=== PATIENT | female | born 1965 | race Caucasian/White ===

== ENCOUNTER 2022-03-29 21:23 | Outpatient (REF) | payer BC, SELFPAY ==
[2022-03-29 22:17] LABS: Calcium* 8.9 mg/dL (8.4-10.6); Creatinine* 0.6 mg/dL (0.5-1.5); Estimated Glomerular Filt Rate 107 ml/min
== END 2022-03-29 21:24 | disposition home or self-care (01) ==
LOC: NPINS 21:23
PROVIDERS: PCP Emergency Medicine; Visit Provider Clinical Nurse Specialist
DX: M85.30 Osteitis condensans, unspecified site (principal)
CPT/HCPCS: 82310; 82565

== ENCOUNTER 2022-03-31 09:01 | Outpatient (RCR) | payer BC, SELFPAY ==
--- NOTE | 2022-03-29 13:27 | URNOTE ---
Received request for prior auth for Zoledronic acid ([id number]). Per [facility], prior auth is not required. Services are based on medical necessity.
[2022-03-31 09:18] VITALS: BP 97/66; PULSE 77; RESP 16; TEMP 36.8; O2SAT 98
== END 2022-04-09 23:59 | disposition home or self-care (01) ==
LOC: CCIC 09:01
PROVIDERS: PCP Emergency Medicine; Visit Provider Emergency Medicine
DX: M85.80 Other specified disorders of bone density and structure, unspecified site (principal)
CPT/HCPCS: 96365; J3489

== ENCOUNTER 2022-08-14 09:00 | Outpatient (CLI) | payer BC, SELFPAY ==
--- NOTE | 2022-08-14 09:15 | CRLHL7_ITS ---
For Patients: As a result of the Century Cures Act, medical imaging exams and procedure reports are released immediately into your electronic medical record. You may view this report before your referring provider. If you have questions, please contact your health care provider. BILATERAL SCREENING MAMMOGRAM WITH COMPUTER-AIDED DETECTION AND TOMOSYNTHESIS TECHNIQUE: CC and MLO views were obtained. These mammographic images have been obtained using full-field digital technique. These mammographic images were interpreted with the benefit of computer-aided detection. Breast Tomosynthesis was used in this interpretation. COMPARISON FILM: 04/20/21, 04/23/20, 04/09/19. FINDINGS: There are scattered areas of fibroglandular density IMPRESSION: There is no radiographic evidence for malignancy. ASSESSMENT: BI-RADS Category 1: Negative RECOMMENDATION: Routine screening mammogram in 1 year. A lay language report of this examination will be provided to the patient. Mulugeta Castro M.D. Diagnostic Radiologist [email or web address] SALAZAR/Dictated by: Mulugeta Castro MD @ 08/14/2022 12:52:00 PM (Electronically Signed)
== END 2022-08-14 09:01 | disposition home or self-care (01) ==
LOC: MAMMO 09:01
PROVIDERS: PCP Emergency Medicine; Visit Provider Emergency Medicine
DX: Z12.31 Encounter for screening mammogram for malignant neoplasm of breast (principal)
CPT/HCPCS: 77063; 77067

== ENCOUNTER 2023-01-11 07:31 | Outpatient (CLI) | payer BC, SELFPAY | END 2023-01-11 07:32 | disposition home or self-care (01) | LOC: NFLDREF 01-12 10:54 | PROVIDERS: PCP Emergency Medicine; Referring Provider Emergency Medicine; Visit Provider Emergency Medicine | DX: D50.9 Iron deficiency anemia, unspecified (principal); E78.5 Hyperlipidemia, unspecified; F90.9 Attention-deficit hyperactivity disorder, unspecified type; Z79.899 Other long term (current) drug therapy | CPT/HCPCS: 80048; 80061; 82607; 82728 ==

== ENCOUNTER 2023-05-08 16:05 | Outpatient (CLI) | payer BC, SELFPAY | END 2023-05-08 16:06 | disposition home or self-care (01) | LOC: NFLDREF 05-10 16:15 | PROVIDERS: PCP Emergency Medicine; Referring Provider Emergency Medicine; Visit Provider Emergency Medicine | DX: R79.89 Other specified abnormal findings of blood chemistry (principal) | CPT/HCPCS: 82306 ==

== ENCOUNTER 2023-08-17 08:00 | Outpatient (REF) | payer BC, SELFPAY | END 2023-08-17 08:01 | disposition home or self-care (01) | LOC: NFLDREF 08:00 | PROVIDERS: PCP Emergency Medicine; Referring Provider Emergency Medicine; Visit Provider Emergency Medicine | DX: D50.8 Other iron deficiency anemias (principal); E78.5 Hyperlipidemia, unspecified; R79.89 Other specified abnormal findings of blood chemistry | CPT/HCPCS: 80053; 80061; 82306; 82728 ==

== ENCOUNTER 2023-10-02 12:39 | Outpatient (CLI) | payer BC, SELFPAY ==
--- NOTE | 2023-10-02 13:00 | CRLHL7_ITS ---
For Patients: As a result of the Century Cures Act, medical imaging exams and procedure reports are released immediately into your electronic medical record. You may view this report before your referring provider. If you have questions, please contact your health care provider. BILATERAL SCREENING MAMMOGRAM WITH COMPUTER-AIDED DETECTION AND TOMOSYNTHESIS TECHNIQUE: CC and MLO views were obtained. These mammographic images have been obtained using full-field digital technique. These mammographic images were interpreted with the benefit of computer-aided detection. Breast Tomosynthesis was used in this interpretation. COMPARISON FILM: 08/14/22, 04/20/21, 04/23/20. FINDINGS: There are scattered areas of fibroglandular density. IMPRESSION: There is no radiographic evidence for malignancy. ASSESSMENT: BI-RADS Category 1: Negative RECOMMENDATION: Routine screening mammogram in 1 year. A lay language report of this examination will be provided to the patient. Mulugeta Castro M.D. Diagnostic Radiologist [email or web address] SP/Dictated by: Mulugeta Castro MD @ 10/03/2023 1:00:00 PM (Electronically Signed)
== END 2023-10-02 12:40 | disposition home or self-care (01) ==
LOC: MAMMO 12:39
PROVIDERS: PCP Emergency Medicine; Visit Provider Emergency Medicine
DX: Z12.31 Encounter for screening mammogram for malignant neoplasm of breast (principal)
CPT/HCPCS: 77063; 77067

== ENCOUNTER 2023-12-07 13:19 | Inpatient (IN) | payer BC, SELFPAY ==
[2023-12-07] VITALS (7 sets, daily range): BP systolic 140–169; BP diastolic 83–92; PULSE 69–83; RESP 20–26; TEMP 36.1–37.1; O2SAT 95–100; BMI 31.5; BMI 32.4
--- NOTE | 2023-12-07 13:55 | ED.GENADULT ---
HPI - General Adult General Chief complaint: Abdominal Pain <Radha Reddy MD - Last Filed: 12/07/23 20:04> Stated complaint: vomiting, stomach pain <Radha Reddy MD - Last Filed: 12/07/23 20:04> Time Seen by Provider: 12/07/23 13:29 <Radha Reddy MD - Last Filed: 12/07/23 20:04> Source: patient <Radha Reddy MD - Last Filed: 12/07/23 20:04> Mode of arrival: ambulatory <Radha Reddy MD - Last Filed: 12/07/23 20:04> Limitations: no limitations <Radha Reddy MD - Last Filed: 12/07/23 20:04> History of Present Illness HPI narrative: 58-year-old female presenting today with abdominal pain that started about 5 hours ago. Pain is located all over the abdomen but concentrates just above the umbilicus slightly to the left. She states that she has vomited multiple times secondary to the pain. She denies fevers or chills. She denies nothing making the pain better or worse. She states that she had 2 bowel movements this morning which were normal. She denies any blood in her stool. She denies any difficulty with urination, no dysuria, increased frequency or urgency. 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 Past surgical history includes bariatric surgery. <Radha Reddy MD - Last Filed: 12/07/23 20:04> Related Data Home medications: Home Medications Medication Instructions Recorded Confirmed cetirizine 10 mg tablet 10 mg PO DAILY PRN 03/30/22 07/30/23 iron slow release PO 12/05/22 07/30/23 Previous Rx's Medication Instructions Recorded cyclobenzaprine 10 mg tablet 5 - 10 mg (0.5 - 1 x 10 mg) PO HS 01/17/23 PRN muscle spasm #90 tabs ergocalciferol (vitamin D2) 1,250 1,250 mcg PO DIRECTED #10 caps 05/10/23 mcg (50,000 unit) capsule dextroamphetamine-amphetamine ER 20 mg PO QAM #30 caps 07/25/23 20 mg 24hr capsule,extend release (Adderall XR) epinephrine 0.3 mg/0.3 mL 0.3 ml IM PRN PRN bronchodilation 08/21/23 injection, auto-injector #2 ea triamcinolone acetonide 0.1 % 1 applic topical BID #30 grams 08/21/23 topical cream trazodone 50 mg tablet 50 mg PO QPM PRN for insomnia #90 10/03/23 tabs <Radha Reddy MD - Last Filed: 12/07/23 20:04> Allergies/adverse reactions: Allergies Allergy/AdvReac Type Severity Reaction Status Date / Time Shell fish Allergy Intermediate Anaphylaxis Uncoded 08/21/23 12:40 <Radha Reddy MD - Last Filed: 12/07/23 20:04> Review of Systems Status of ROS: Reports: 10 or more systems reviewed and unremarkable except as noted in History and below <Radha Reddy MD - Last Filed: 12/07/23 20:04> [facility] Medical History: Medical History Screening for cervical cancer ?Z12.4 - Encounter for screening for malignant neoplasm of cervix (ICD-10) Bruising ?T14.8XXA - Other injury of unspecified body region, initial encounter (ICD-10) Thoracic back pain ?M54.6 - Pain in thoracic spine (ICD-10) COVID ?U07.1 - COVID-19 (ICD-10) SCC (squamous cell carcinoma) ?C44.92 - Squamous cell carcinoma of skin, unspecified (ICD-10) Shellfish allergy ?Z91.013 - Allergy to seafood (ICD-10) Medication management ?Z79.899 - Other care home (current) drug therapy (ICD-10) Psoriasis ?L40.9 - Psoriasis, unspecified (ICD-10) Adhesive capsulitis ?M75.00 - Adhesive capsulitis of unspecified shoulder (ICD-10) Tendinopathy of rotator cuff ?M67.919 - Unspecified disorder of synovium and tendon, unspecified shoulder (ICD-10) ADHD ?F90.9 - Attention-deficit hyperactivity disorder, unspecified type (ICD-10) Insomnia ?G47.00 - Insomnia, unspecified (ICD-10) Osteoporosis ?M81.0 - Age-related osteoporosis without current pathological fracture (ICD-10) Osteopenia ?M85.80 - Other specified disorders of bone density and structure, unspecified site (ICD-10) <Radha Reddy MD - Last Filed: 12/07/23 20:04> Surgical History: Surgical History H/O bariatric surgery ?Z98.84 - Bariatric surgery status (ICD-10) History of tubal ligation (08/22/11) ?Z98.51 - Tubal ligation status (ICD-10) History of tonsillectomy (07/10/11) ?Z90.89 - Acquired absence of other organs (ICD-10) History of sinus surgery (07/10/11) ?Z98.890 - Other specified postprocedural states (ICD-10) History of gastric bypass (07/10/11) ?Z98.84 - Bariatric surgery status (ICD-10) <Radha Reddy MD - Last Filed: 12/07/23 20:04> Family History: Family History Son ADHD Father Coronary artery disease High blood pressure High cholesterol Other Heart disease Hyperlipidemia Osteoporosis <Radha Reddy MD - Last Filed: 12/07/23 20:04> Social History: Social History Narrative: Nonsmoker Smoking Status: Never smoker Little interest or pleasure in doing things: not at all Feeling down, depressed, or hopeless: not at all <Radha Reddy MD - Last Filed: 12/07/23 20:04> Exam Narrative: Exam Narrative: Well-nourished well-developed patient in moderate distress. Alert and oriented x3. Answers questions appropriately. Mood and affect are appropriate. Thoughts are goal oriented and rational. No tangential or magical thinking noted. Patient is panting in pain. HEENT: Normocephalic atraumatic. Pupils are equally round reactive to light. Extraocular muscles are intact. Conjunctivae are moist without any icterus noted. Slightly dry mucous membranes. Posterior pharynx is normal. Neck is soft without any lymphadenopathy or thyromegaly. No masses are appreciated. Cardiovascular: Heart is regular rate and rhythm S1 and S2 are present without any murmurs. Lungs: Clear to auscultation bilaterally no wheezes rhonchi or rales are appreciated. Patient takes deep breaths without any discomfort. Abdomen: Soft and nondistended, normal bowel sounds. She has diffuse tenderness, however the most tender area is just superior to the umbilicus slightly off to the left. Extremities: Bilateral lower extremities are without edema. Skin: Well perfused without any obvious rashes. <Radha Reddy MD - Last Filed: 12/07/23 20:04> Const: Vital Signs, click to edit/add: Vital Signs - 24 hr 12/07/23 13:35 12/07/23 17:09 12/07/23 17:10 Temperature 97.7 F Pulse Rate 73 71 Pulse Rate [Pulse Oximeter] 75 Respiratory Rate 26 H Blood Pressure 145/83 H Blood Pressure [Ri ght Upper Arm] 169/92 H Pulse Oximetry 100 100 100 Oxygen Delivery Me thod Room Air 12/07/23 17:11 12/07/23 17:18 Temperature 97.0 F L Pulse Rate 69 Pulse Rate [Pulse Oximeter] Respiratory Rate Blood Pressure Blood Pressure [Ri ght Upper Arm] Pulse Oximetry 100 Oxygen Delivery Me thod <Radha Reddy MD - Last Filed: 12/07/23 20:04> Vital Signs, click to edit/add: Vital Signs - 24 hr 12/07/23 13:35 12/07/23 17:09 12/07/23 17:10 Temperature 97.7 F Pulse Rate 73 71 Pulse Rate [Pulse Oximeter] 75 Respiratory Rate 26 H Blood Pressure 145/83 H Blood Pressure [Ri ght Upper Arm] 169/92 H Pulse Oximetry 100 100 100 Oxygen Delivery Me thod Room Air 12/07/23 17:11 12/07/23 17:18 Temperature 97.0 F L Pulse Rate 69 Pulse Rate [Pulse Oximeter] Respiratory Rate Blood Pressure Blood Pressure [Ri ght Upper Arm] Pulse Oximetry 100 Oxygen Delivery Me thod <Kosta Thornton MD - Last Filed: 12/07/23 22:31> Course Course ED Course: IV is ordered along with IV fluids, morphine and Zofran. Unfortunately, staff is unable to get an IV in. Anesthesia is called down and they are also unable to get an IV in. Given the amount of pain that she is in patient receives oral hydromorphone, oral Zofran and we sent her down for a CT scan without IV contrast. Differential diagnosis at this time includes mesenteric ischemia, bowel perforation, volvulus, bowel obstruction, pancreatitis, gastritis. CT shows duodenitis, however images again, were done without contrast. Her white cell count is elevated at 12.5, neutrophils at 86%. Chemistries showed a slightly low carbon dioxide at 18, glucose 133, lactate elevated at 3.1. CRP less than 0.5. LFTs unremarkable. Lipase normal. After patient had been in the ED for approximately 3-1/2 hour, we had an outside PICC line team, and placed an IV. At this time fluids were started, and given the amount of pain that she can a CT with contrast was ordered. Unfortunately after she got IV Dilaudid, Protonix and 700 mL of fluid while waiting for the CT, the IV blew. At this time I contacted Dr. La, who was in agreement that the patient does need a CT with contrast. She will be coming into place a central line. <Radha Reddy MD - Last Filed: 12/07/23 20:04> Vital Signs Vital signs: Initial Vital Signs Temperature 97.7 F 12/07/23 13:35 Temperature Source Temporal Artery Scan 12/07/23 13:35 Pulse Rate 75 12/07/23 13:35 Pulse Rhythm Regular 12/07/23 13:35 Respiratory Rate 26 H 12/07/23 13:35 Blood Pressure 169/92 H 12/07/23 13:35 Blood Pressure Mean 117 H 12/07/23 13:35 Blood Pressure Position Sitting 12/07/23 13:35 Pulse Oximetry 100 12/07/23 13:35 Oxygen Delivery Method Room Air 12/07/23 13:35 Vital Signs Temperature 97.7 F 12/07/23 13:35 Pulse Rate 75 12/07/23 13:35 Respiratory Rate 26 H 12/07/23 13:35 Blood Pressure 169/92 H 12/07/23 13:35 Pulse Oximetry 100 12/07/23 13:35 Oxygen Delivery Method Room Air 12/07/23 13:35 Temperature 97.0 F L 12/07/23 17:18 Pulse Rate 69 12/07/23 17:11 Respiratory Rate 26 H 12/07/23 13:35 Blood Pressure 145/83 H 12/07/23 17:10 Pulse Oximetry 100 12/07/23 17:11 Oxygen Delivery Method Room Air 12/07/23 13:35 <Radha Reddy MD - Last Filed: 12/07/23 20:04> Initial Vital Signs Temperature 97.7 F 12/07/23 13:35 Temperature Source Temporal Artery Scan 12/07/23 13:35 Pulse Rate 75 12/07/23 13:35 Pulse Rhythm Regular 12/07/23 13:35 Respiratory Rate 26 H 12/07/23 13:35 Blood Pressure 169/92 H 12/07/23 13:35 Blood Pressure Mean 117 H 12/07/23 13:35 Blood Pressure Position Sitting 12/07/23 13:35 Pulse Oximetry 100 12/07/23 13:35 Oxygen Delivery Method Room Air 12/07/23 13:35 Vital Signs Temperature 97.7 F 12/07/23 13:35 Pulse Rate 75 12/07/23 13:35 Respiratory Rate 26 H 12/07/23 13:35 Blood Pressure 169/92 H 12/07/23 13:35 Pulse Oximetry 100 12/07/23 13:35 Oxygen Delivery Method Room Air 12/07/23 13:35 Temperature 97.0 F L 12/07/23 17:18 Pulse Rate 69 12/07/23 17:11 Respiratory Rate H 12/07/23 13:35 Blood Pressure 145/83 H 12/07/23 17:10 Pulse Oximetry 100 12/07/23 17:11 Oxygen Delivery Method Room Air 12/07/23 13:35 <Kosta Thornton MD - Last Filed: 12/07/23 22:31> Medications Administered Medications: Generic Name Dose Route Start Last Admin Trade Name Freq PRN Reason Stop Dose Admin Sodium Chloride 1,000 mls @ 1,000 mls/hr 12/07/23 21:12 12/07/23 21:30 0.9 % Sodium Chloride 1000 Ml IV 12/07/23 22:11 1,000 mls/hr .Q1H CASTRO Administration Discontinued Medications Generic Name Dose Route Start Last Admin Trade Name Freq PRN Reason Stop Dose Admin Hydromorphone HCl 2 mg 12/07/23 15:15 12/07/23 16:33 Hydromorphone 2 Mg Tablet PO 12/07/23 15:16 Not Given ONCE ONE Hydromorphone HCl 0.5 mg 12/07/23 16:59 12/07/23 17:09 Hydromorphone 0.5 Mg/0.5 Ml Inj IVP 12/07/23 17:00 0.5 mg ONCE ONE Administration Sodium Chloride 1,000 mls @ 1,000 mls/hr 12/07/23 13:45 12/07/23 20:39 0.9 % Sodium Chloride 1000 Ml IV 12/07/23 14:44 Infused .Q1H CASTRO Infusion Morphine Sulfate 2 mg 12/07/23 13:41 12/07/23 14:51 Morphine 2 Mg/Ml Inj IVP 12/07/23 13:42 2 mg ONCE ONE Administration Ondansetron HCl 4 mg 12/07/23 13:41 12/07/23 20:38 Ondansetron 2 Mg/Ml Inj IVP 12/07/23 13:42 Not Given ONCE ONE Ondansetron HCl 4 mg 12/07/23 15:18 12/07/23 15:27 Ondansetron Odt 4 Mg Tab PO 12/07/23 15:19 4 mg ONCE ONE Administration Pantoprazole Sodium 80 mg 12/07/23 16:08 12/07/23 17:18 Pantoprazole Sodium 40 Mg Inj IVP 12/07/23 16:09 80 mg ONCE ONE Administration <Radha Reddy MD - Last Filed: 12/07/23 20:04> Generic Name Dose Route Start Last Admin Trade Name Freq PRN Reason Stop Dose Admin Sodium Chloride 1,000 mls @ 1,000 mls/hr 12/07/23 21:12 12/07/23 21:30 0.9 % Sodium Chloride 1000 Ml IV 12/07/23 22:11 1,000 mls/hr .Q1H CASTRO Administration Discontinued Medications Generic Name Dose Route Start Last Admin Trade Name Freq PRN Reason Stop Dose Admin Hydromorphone HCl 2 mg 12/07/23 15:15 12/07/23 16:33 Hydromorphone 2 Mg Tablet PO 12/07/23 15:16 Not Given ONCE ONE Hydromorphone HCl 0.5 mg 12/07/23 16:59 12/07/23 17:09 Hydromorphone 0.5 Mg/0.5 Ml Inj IVP 12/07/23 17:00 0.5 mg ONCE ONE Administration Sodium Chloride 1,000 mls @ 1,000 mls/hr 12/07/23 13:45 12/07/23 20:39 0.9 % Sodium Chloride 1000 Ml IV 12/07/23 14:44 Infused .Q1H CASTRO Infusion Morphine Sulfate 2 mg 12/07/23 13:41 12/07/23 14:51 Morphine 2 Mg/Ml Inj IVP 12/07/23 13:42 2 mg ONCE ONE Administration Ondansetron HCl 4 mg 12/07/23 13:41 12/07/23 20:38 Ondansetron 2 Mg/Ml Inj IVP 12/07/23 13:42 Not Given ONCE ONE Ondansetron HCl 4 mg 12/07/23 15:18 12/07/23 15:27 Ondansetron Odt 4 Mg Tab PO 12/07/23 15:19 4 mg ONCE ONE Administration Pantoprazole Sodium 80 mg 12/07/23 16:08 12/07/23 17:18 Pantoprazole Sodium 40 Mg Inj IVP 12/07/23 16:09 80 mg ONCE ONE Administration <Kosta Thornton MD - Last Filed: 12/07/23 22:31> Medical Decision Making MDM Narrative Medical decision making narrative: Patient is a 58-year-old woman who presents with abdominal pain is found to have duodenitis on CT scan. There is no evidence of internal hernia or any other pathology. We did send off stool for H pylori. Patient's blood was cultured she was started on IV Zosyn and subsequently admitted after IV central line was placed. <Kosta Thornton MD - Last Filed: 12/07/23 22:31> Lab Data Labs: Lab Results 12/07/23 12/07/23 12/07/23 Range/Units 14:35 19:28 21:15 WBC 12.53 H (4.50-11.00) K/uL RBC 4.05 (4.00-5.20) m/uL Hgb 12.6 (12.0-16.0) gm/dL Hct 37.4 (33.0-51.0) % MCV 92 (80-100) fL MCH 31 (26-34) pg MCHC 34 (32-36) gm/dL RDW Coeff of Demetri 12.3 (11.5-15.5) % Plt Count 331 (140-440) K/uL Neut % (Auto) 86.1 H (42.0-72.0) % Lymph % (Auto) 9.8 L (20-44) % [place] % (Auto) 3.6 (0.0-11.0) % Eos % (Auto) 0.0 (0.0-7.0) % Baso % (Auto) 0.3 (0.0-3.0) % Neut # (Auto) 10.80 H (1.7-7.0) K/uL Lymph # (Auto) 1.20 (0.90-2.90) K/uL [place] # (Auto) 0.50 (0.00-0.90) K/UL Eos # (Auto) 0.00 (0.00-0.50) K/uL Baso # (Auto) 0.00 (0.00-0.30) K/uL Abs Immat Gran (auto) 0.00 (0.00-0.30) K/uL Imm/Tot Granulo (auto) 0.2 % Sodium 137 (135-149) mmol/L Potassium 4.0 (3.6-5.1) mmol/L Chloride 107 (96-114) mmol/L Carbon Dioxide 18 L (20-32) mmol/L Anion Gap 12 (7-15) mEq/L BUN 14 (7-30) mg/dL Creatinine 0.5 (0.5-1.5) mg/dL Estimated Creat Clear 117.61 Estimated GFR 110 ml/min Glucose 133 H (60-115) mg/dL Lactate 3.1 H 1.1 (0.5-1.9) mmol/L Calcium 10.1 (8.4-10.6) mg/dL Total Bilirubin 0.7 (0.1-1.5) mg/dL Direct Bilirubin 0.1 (0.0-0.5) mg/dL AST 30 (12-35) U/L ALT 28 (4-35) U/L Alkaline Phosphatase 97 (40-150) U/L C-Reactive Protein < 0.5 L (0.5-1.0) mg/dL Total Protein 7.6 (6.0-8.3) g/dL Albumin 4.4 (3.3-5.0) g/dL Lipase 97 (23-300) U/L Urine Color Yellow (Yellow) Urine Appearance Cloudy A (Clear) Urine pH 8.5 (5.0-8.5) Ur Specific [place] 1.020 (1.000-1.030) Urine Protein Negative (Negative) Urine Glucose (UA) Negative (Negative) Urine Ketones 2+ A (Negative) Urine Blood Negative (Negative) Urine Nitrite Positive A (Negative) Urine Bilirubin Negative (Negative) Urine Urobilinogen 0.2 (0.2-1.0) Ur Leukocyte Esterase Negative (Negative) Urine RBC 0-2 (0-2) Urine WBC 0-2 (0-5) Ur Squamous Epith Cells None (None-Few) Urine Bacteria Many A (None) <Radha Reddy MD - Last Filed: 12/07/23 20:04> Lab Results 12/07/23 12/07/23 12/07/23 Range/Units 14:35 19:28 21:15 WBC 12.53 H (4.50-11.00) K/uL RBC 4.05 (4.00-5.20) m/uL Hgb 12.6 (12.0-16.0) gm/dL Hct 37.4 (33.0-51.0) % MCV 92 (80-100) fL MCH 31 (26-34) pg MCHC 34 (32-36) gm/dL RDW Coeff of Demetri 12.3 (11.5-15.5) % Plt Count 331 (140-440) K/uL Neut % (Auto) 86.1 H (42.0-72.0) % Lymph % (Auto) 9.8 L (20-44) % [place] % (Auto) 3.6 (0.0-11.0) % Eos % (Auto) 0.0 (0.0-7.0) % Baso % (Auto) 0.3 (0.0-3.0) % Neut # (Auto) 10.80 H (1.7-7.0) K/uL Lymph # (Auto) 1.20 (0.90-2.90) K/uL [place] # (Auto) 0.50 (0.00-0.90) K/UL Eos # (Auto) 0.00 (0.00-0.50) K/uL Baso # (Auto) 0.00 (0.00-0.30) K/uL Abs Immat Gran (auto) 0.00 (0.00-0.30) K/uL Imm/Tot Granulo (auto) 0.2 % Sodium 137 (135-149) mmol/L Potassium 4.0 (3.6-5.1) mmol/L Chloride 107 (96-114) mmol/L Carbon Dioxide 18 L (20-32) mmol/L Anion Gap 12 (7-15) mEq/L BUN 14 (7-30) mg/dL Creatinine 0.5 (0.5-1.5) mg/dL Estimated Creat Clear 117.61 Estimated GFR 110 ml/min Glucose 133 H (60-115) mg/dL Lactate 3.1 H 1.1 (0.5-1.9) mmol/L Calcium 10.1 (8.4-10.6) mg/dL Total Bilirubin 0.7 (0.1-1.5) mg/dL Direct Bilirubin 0.1 (0.0-0.5) mg/dL AST 30 (12-35) U/L ALT 28 (4-35) U/L Alkaline Phosphatase 97 (40-150) U/L C-Reactive Protein < 0.5 L (0.5-1.0) mg/dL Total Protein 7.6 (6.0-8.3) g/dL Albumin 4.4 (3.3-5.0) g/dL Lipase 97 (23-300) U/L Urine Color Yellow (Yellow) Urine Appearance Cloudy A (Clear) Urine pH 8.5 (5.0-8.5) Ur Specific [place] 1.020 (1.000-1.030) Urine Protein Negative (Negative) Urine Glucose (UA) Negative (Negative) Urine Ketones 2+ A (Negative) Urine Blood Negative (Negative) Urine Nitrite Positive A (Negative) Urine Bilirubin Negative (Negative) Urine Urobilinogen 0.2 (0.2-1.0) Ur Leukocyte Esterase Negative (Negative) Urine RBC 0-2 (0-2) Urine WBC 0-2 (0-5) Ur Squamous Epith Cells None (None-Few) Urine Bacteria Many A (None) <Brambila J Reister, MD - Last Filed: 12/07/23 22:31> Imaging Data CT scan - abdomen: Attestation: I have reviewed the pertinent imaging results. <Radha Reddy MD - Last Filed: 12/07/23 20:04> Radiologist's impression: TECHNIQUE: CT of the abdomen and pelvis without intravenous contrast. Please note that all CT scans at this facility use dose modulation, iterative reconstruction, and/or weight-based dosing when appropriate to reduce radiation dose to as low as reasonably achievable. FINDINGS: The study is performed without intravenous contrast. This limits the sensitivity of the exam for the detection bowel pathology, focal lesions of the abdominopelvic viscera and vascular pathology including significant vascular stenosis, occlusion and dissection. ABDOMEN Liver: Normal hepatic attenuation. No suspicious focal hepatic lesion. No intrahepatic biliary ductal dilatation. Gallbladder: Normal gallbladder size. Normal common duct caliber. No pericholecystic inflammatory changes. Pancreas: Normal pancreatic attenuation. No focal lesion. Normal duct caliber. Focal fatty infiltration of the pancreatic head. Spleen: Normal splenic attenuation. No suspicious focal lesion. Adrenal Glands: Symmetrical adrenal glands. No focal lesion of significance. Kidneys: Normal bilateral renal attenuation. No suspicious focal lesion. No obstructing nephrolith or dilatation of the intrarenal collecting systems. Gastrointestinal tract: Periduodenal fat stranding and right anterior pararenal small volume free fluid consistent with acute inflammatory changes. By location, duodenitis is favored. Inflammatory changes are predominantly associated with the duodenum rather than the pancreas. Normal appendix. Cheri-en-Y gastric bypass. Vascular: Normal outer wall to outer wall abdominal aortic caliber. Patency and luminal caliber of the abdominopelvic arterial and venous vasculature cannot be assessed on this noncontrast study. 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 Additional findings: No incidental adenopathy. No significant ascites, free fluid or pneumoperitoneum. PELVIS No bladder lesion is identified. Incidental 1.4 cm homogeneous circumscribed simple fluid density right ovarian cysts for which no further imaging surveillance or workup is indicated based on published management guidelines. Unchanged bilateral tubal clips. No abnormal free fluid. No incidental adenopathy. SKELETON AND BODY WALL No acute or suspicious incidental findings. LOWER THORAX Partially included lower thoracic wall, lungs, pleural spaces and mediastinum are otherwise without significant incidental findings. IMPRESSION: Periduodenal fat stranding and right anterior pararenal small volume free fluid consistent with acute inflammatory changes. By location, duodenitis is favored. Inflammatory changes are predominantly associated with the duodenum rather than the pancreas. Consider gastroenterology consultation for further evaluation (endoscopy). <Radha Reddy MD - Last Filed: 12/07/23 20:04> Discharge Plan Discharge Clinical Impression: Duodenitis <Radha Reddy MD - Last Filed: 12/07/23 20:04> Patient Disposition: Admitted As Observation <Radha Reddy MD - Last Filed: 12/07/23 20:04> Condition: Stable <Radha Reddy MD - Last Filed: 12/07/23 20:04> Activity Level: Other <Radha Reddy MD - Last Filed: 12/07/23 20:04> Other <Kosta Thornton MD - Last Filed: 12/07/23 22:31> Discharge Diet: Other <Radha Reddy MD - Last Filed: 12/07/23 20:04> Other <Kosta Thornton MD - Last Filed: 12/07/23 22:31> Prescriptions: No Action epinephrine 0.3 mg/0.3 mL auto-injector 0.3 ml IM PRN PRN (Reason: bronchodilation) Qty: 2 0RF triamcinolone acetonide 0.1 % cream 1 applic topical BID Qty: 30 1RF Rx Instructions: Apply topically to area(s) of skin affected twice daily, put cream away when skin clears iron slow release 45 mg PO cyclobenzaprine 10 mg tablet 5 - 10 mg PO HS PRN (Reason: muscle spasm) Qty: 90 1RF cetirizine 10 mg tablet 10 mg PO DAILY PRN ergocalciferol (vitamin D2) 1,250 mcg (50,000 unit) capsule 1,250 mcg PO DIRECTED Qty: 10 0RF Rx Instructions: take 1 c po qwk x 4 wk, then monthly for vitamin deficiency dextroamphetamine-amphetamine [Adderall XR] 20 mg capsule,extended release 24hr 20 mg PO QAM Qty: 30 0RF trazodone 50 mg tablet 50 mg PO QPM PRN (Reason: for insomnia) Qty: 90 3RF <aRdha Reddy MD - Last Filed: 12/07/23 20:04> Follow Up/Referrals: Anais Ortega MD [Primary Care Provider] - <Radha Reddy MD - Last Filed: 12/07/23 20:04>
[2023-12-07 14:40] LABS: Lactate* 3.1 mmol/L (0.5-1.9)
[2023-12-07 14:45] LABS: Basophils Percent Auto 0.3 % (0.0-3.0); Hematocrit* 37.4 % (33.0-51.0); Hemoglobin* 12.6 gm/dL (12.0-16.0); Immature Granulocytes Pct Auto 0.2 %; Lymphocytes Percent Auto 9.8 % (20-44); Mean Corpuscular HGB Conc 34 gm/dL (32-36); Mean Corpuscular Hemoglobin 31 pg (26-34); Mean Corpuscular Volume 92 fL (80-100); Monocytes Percent Auto 3.6 % (0.0-11.0); Neutrophils Percent Auto 86.1 % (42.0-72.0); Platelet Count* 331 K/uL (140-440); RDW Coefficient of Variation % 12.3 % (11.5-15.5); Red Blood Count* 4.05 m/uL (4.00-5.20); White Blood Count* 12.53 K/uL (4.50-11.00)
[2023-12-07 14:47] LABS: Slide Review Reflex No
[2023-12-07] MEDS: MORPHINE 2 MG/ML inj IVP (14:51)
--- NOTE | 2023-12-07 14:52 | CT_ITS ---
Patient: LUCITA DONNELLY Facility:?[facility] Patient ID:?[id number] Site Patient ID:?[id number]. Site :?[id number] Study:?CT-Abdomen/Pelvis WITHOUT-12/07/2023 3:11:53 PM Ordering Physician:?DR. REEVES Final Report: INDICATION: Right lower quadrant pain associated with nausea and vomiting. COMPARISON: 01/29/2023, 03/18/2021 TECHNIQUE: CT of the abdomen and pelvis without intravenous contrast. Please note that all CT scans at this facility use dose modulation, iterative reconstruction, and/or weight-based dosing when appropriate to reduce radiation dose to as low as reasonably achievable. FINDINGS: The study is performed without intravenous contrast. This limits the sensitivity of the exam for the detection bowel pathology, focal lesions of the abdominopelvic viscera and vascular pathology including significant vascular stenosis, occlusion and dissection. ABDOMEN Liver: Normal hepatic attenuation. No suspicious focal hepatic lesion. No intrahepatic biliary ductal dilatation. Gallbladder: Normal gallbladder size. Normal common duct caliber. No pericholecystic inflammatory changes. Pancreas: Normal pancreatic attenuation. No focal lesion. Normal duct caliber. Focal fatty infiltration of the pancreatic head. Spleen: Normal splenic attenuation. No suspicious focal lesion. Adrenal Glands: Symmetrical adrenal glands. No focal lesion of significance. Kidneys: Normal bilateral renal attenuation. No suspicious focal lesion. No obstructing nephrolith or dilatation of the intrarenal collecting systems. Gastrointestinal tract: Periduodenal fat stranding and right anterior pararenal small volume free fluid consistent with acute inflammatory changes. By location, duodenitis is favored. Inflammatory changes are predominantly associated with the duodenum rather than the pancreas. Normal appendix. Cheri-en-Y gastric bypass. Vascular: Normal outer wall to outer wall abdominal aortic caliber. Patency and luminal caliber of the abdominopelvic arterial and venous vasculature cannot be assessed on this noncontrast study. 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 Additional findings: No incidental adenopathy. No significant ascites, free fluid or pneumoperitoneum. PELVIS No bladder lesion is identified. Incidental 1.4 cm homogeneous circumscribed simple fluid density right ovarian cysts for which no further imaging surveillance or workup is indicated based on published management guidelines. Unchanged bilateral tubal clips. No abnormal free fluid. No incidental adenopathy. SKELETON AND BODY WALL No acute or suspicious incidental findings. LOWER THORAX Partially included lower thoracic wall, lungs, pleural spaces and mediastinum are otherwise without significant incidental findings. IMPRESSION: Periduodenal fat stranding and right anterior pararenal small volume free fluid consistent with acute inflammatory changes. By location, duodenitis is favored. Inflammatory changes are predominantly associated with the duodenum rather than the pancreas. Consider gastroenterology consultation for further evaluation (endoscopy). The study is performed without intravenous contrast. This limits the sensitivity of the exam for the detection bowel pathology, focal lesions of the abdominopelvic viscera and vascular pathology including significant vascular stenosis, occlusion and dissection. Please note that all CT scans at this facility use dose modulation, iterative reconstruction, and/or weight-based dosing when appropriate to reduce radiation dose to as low as reasonably achievable. Dictated by Frederick Lopez MD @ 12/07/2023 3:26:08 PM Signed by:?Frederick Lopez MD @12/07/2023 3:26:08 PM (Electronic Signature)
[2023-12-07 15:01] LABS: Albumin* 4.4 g/dL (3.3-5.0)
[2023-12-07 15:02] LABS: Chloride* 107 mmol/L (96-114); Sodium* 137 mmol/L (135-149)
[2023-12-07 15:04] LABS: Alkaline Phosphatase* 97 U/L (40-150); Aspartate Amino Transferase* 30 U/L (12-35); Bilirubin Direct* 0.1 mg/dL (0.0-0.5); Bilirubin Total* 0.7 mg/dL (0.1-1.5); Total Protein* 7.6 g/dL (6.0-8.3)
[2023-12-07 15:05] LABS: Alanine Aminotransferase* 28 U/L (4-35); Creatinine* 0.5 mg/dL (0.5-1.5); Est. Creatinine Clearance* 117.61; Estimated Glomerular Filt Rate 110 ml/min; Lipase* 97 U/L (23-300)
[2023-12-07 15:06] LABS: Anion Gap 12 mEq/L (7-15); Blood Urea Nitrogen* 14 mg/dL (7-30); Calcium* 10.1 mg/dL (8.4-10.6); Carbon Dioxide* 18 mmol/L (20-32); Glucose* 133 mg/dL (60-115)
[2023-12-07 15:12] LABS: C Reactive Protein* < 0.5 mg/dL (0.5-1.0)
[2023-12-07] MEDS: ONDANSETRON ODT 4 MG TAB PO (15:27)
[2023-12-07] MEDS: 0.9 % SODIUM CHLORIDE 1000 ml 1,000 ML IV ×2 (17:09→21:30)
[2023-12-07] MEDS: HYDROmorphone 0.5 mg/0.5 ml inj IVP (17:09)
--- NOTE | 2023-12-07 17:16 | CT_ITS ---
Patient: LUCITA DONNELLY Facility:?[facility] Patient ID:?[id number] Site Patient ID:?[id number]. Site :?[id number] Study:?CT-Abdomen/Pelvis W/ISOVUE 370 95CC-12/07/2023 9:11:53 PM Ordering Physician:BASILIO Final Report: INDICATION: Abdominal pain TECHNIQUE: CT Abdomen and pelvis with i.v. contrast. Coronal and sagittal reformats were obtained. CONTRAST: 95 mL Isovue 370 COMPARISON: 12/07/2023, 01/29/2023 FINDINGS: Lower chest: Unremarkable. Liver: Unremarkable. Spleen: Unremarkable. Pancreas: Infiltration of the fat surrounding the pancreatic head and 3rd portion of the duodenal present with an ill-defined fluid collection in the left retroperitoneum measuring approximately 40 HU in density. Gallbladder: Unremarkable. Kidney: Unremarkable. No kidney or ureteral stones or obstruction seen. Adrenal: Unremarkable. Bowel: Previous antegastric-antecolic gastric bypass noted with no definite obstruction of the biliopancreatic limb or Cheri-en-Y loop seen. The appendix is not identified. 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 Lymph: Unremarkable. Peritoneum: Unremarkable. No pneumoperitoneum is seen. No significant ascites is noted. Pelvis: A cyst or follicle is present within the right ovary measuring 2 cm. Soft tissue: Unremarkable. Bone: Unremarkable for age. IMPRESSION: 1. Infiltration of the fat surrounding the pancreatic head and 3rd portion of the duodenal present with an ill-defined fluid collection in the left retroperitoneum measuring approximately 40 HU in density. This may be due to retroperitoneal hematoma associated with duodenitis or pancreatitis involving the pancreatic head. Correlation with amylase and lipase levels are recommended and previous recommendation for endoscopy is reiterated. Dictated by Daryl Romero MD @ 12/07/2023 10:13:01 PM Please note that all CT scans at this facility use dose modulation, iterative reconstruction, and/or weight-based dosing when appropriate to reduce radiation dose to as low as reasonably achievable. Dictated by: Daryl Romero MD @ 12/07/2023 22:13:05 Signed by:?Daryl Romero MD @12/07/2023 10:13:05 PM (Electronic Signature)
[2023-12-07] MEDS: PANTOPRAZOLE SODIUM 40 MG INJ 80 MG IVP (17:18)
[2023-12-07 19:37] LABS: Appearance Urine Cloudy (Clear); Bilirubin Urine Negative (Negative); Blood Urine Negative (Negative); Color Urine Yellow (Yellow); Glucose Urine Negative (Negative); Ketones Urine 2+ (Negative); Leukocyte Esterase Urine Negative (Negative); Nitrite Urine Positive (Negative); Protein Urine Negative (Negative); Urobilinogen Urine 0.2 (0.2-1.0); pH Urine 8.5 (5.0-8.5)
[2023-12-07 20:05] LABS: Bacteria Urine Many; RBC Urine 0-2 (0-2); WBC Urine 0-2 (0-5)
--- NOTE | 2023-12-07 20:30 | XR_ITS ---
Patient: LUCITA DONNELLY Facility:?[facility] Patient ID:?[id number] Site Patient ID:?[id number]. Site :?[id number] Study:?XRay-Chest PORTABLE-12/07/2023 8:50:18 PM Ordering Physician:BASILIO Final Report: INDICATION: Confirm central line placement TECHNIQUE: Chest radiograph 1 view COMPARISON: None FINDINGS: Mediastinum: The mediastinum is normal in appearance. The heart silhouette is normal in size and morphology. Right IJ line is present with the tip in the SVC. Lung: Both lungs are unremarkable in appearance. No sign of pleural effusion seen. No pneumothorax is identified. Bone and Soft tissue: Unremarkable for age. IMPRESSION: 1. Right IJ line is present with the tip in the SVC. Dictated by Daryl Romero MD @ 12/07/2023 9:12:45 PM Dictated by: Daryl Romero MD @ 12/07/2023 21:12:48 Signed by:?Daryl Romero MD @12/07/2023 9:12:48 PM (Electronic Signature)
--- NOTE | 2023-12-07 20:43 | P.GSCN_ITS ---
History of Present Illness Consult details Date Seen: 12/07/23 Consult date: 12/08/23 Narrative: Cynthia is a 58-year-old female who presented to the emergency department with abdominal pain, severe nausea and vomiting starting earlier today. She stated that she feels the pain is mainly in her upper abdomen at the site of her prior gastric bypass. She had 2 bowel movements this morning which were normal for her. She states her bowel movements are usually loose. She has not had any blood in her stool. Her history is that she underwent gastric band placement in 2002. Approximately 10 years ago she underwent gastric band converted to bypass. She states that she had developed a fistula. She has not had any issues since. This was done in [place]. She does not smoke. She has not had any pain like this previously. In the ER, they were unable to place an IV. Multiple attempts were made. Eventually the PICC team came and place an IV, however after pain medicine and 700 mL of fluid, the vein blue. She was left without IV access. A CT scan was obtained without contrast which showed duodenitis. She was also found to have elevated white blood cell count and lactate. [facility] Medical History Screening for cervical cancer ?Z12.4 - Encounter for screening for malignant neoplasm of cervix (ICD-10) Bruising ?T14.8XXA - Other injury of unspecified body region, initial encounter (ICD- 10) Thoracic back pain ?M54.6 - Pain in thoracic spine (ICD-10) COVID ?U07.1 - COVID-19 (ICD-10) SCC (squamous cell carcinoma) ?C44.92 - Squamous cell carcinoma of skin, unspecified (ICD-10) Shellfish allergy ?Z91.013 - Allergy to seafood (ICD-10) Medication management ?Z79.899 - Other remote computer terminal operator (current) drug therapy (ICD-10) Psoriasis ?L40.9 - Psoriasis, unspecified (ICD-10) Adhesive capsulitis ?M75.00 - Adhesive capsulitis of unspecified shoulder (ICD-10) Tendinopathy of rotator cuff ?M67.919 - Unspecified disorder of synovium and tendon, unspecified shoulder (ICD-10) ADHD ?F90.9 - Attention-deficit hyperactivity disorder, unspecified type (ICD-10) Insomnia ?G47.00 - Insomnia, unspecified (ICD-10) Osteoporosis ?M81.0 - Age-related osteoporosis without current pathological fracture (ICD- 10) Osteopenia ?M85.80 - Other specified disorders of bone density and structure, unspecified site (ICD-10) Surgical History H/O bariatric surgery ?Z98.84 - Bariatric surgery status (ICD-10) History of tubal ligation (08/22/11) ?Z98.51 - Tubal ligation status (ICD-10) History of tonsillectomy (07/10/11) ?Z90.89 - Acquired absence of other organs (ICD-10) History of sinus surgery (07/10/11) ?Z98.890 - Other specified postprocedural states (ICD-10) History of gastric bypass (07/10/11) ?Z98.84 - Bariatric surgery status (ICD-10) Family History (Updated 12/07/23 @ 23:08 by Valentino Ojeda MD) Son ADHD Leukemia Father Coronary artery disease High blood pressure High cholesterol Other Heart disease Hyperlipidemia Osteoporosis Social History (Updated 12/07/23 @ 23:09 by Valentino Ojeda MD) Narrative: Nonsmoker. Rarely drinks alcohol She lives in [place] with her . is healthcare power of admitted attorneys. Code status is full. Her 23-year-old son also lives with her. She has a 27-year-old with grandchildren as well. What is your current living situation?: I presently have a place to live Problems where you live: no known problems Problems where you live details: N/A In the past 12 months, utilities in danger of being shut off: no In past 12 months, lack of transportation kept you from medical appts, meetings, work, or getting things needed for daily living: no In the past 12 mos, have been you worried that your food would run out before you had money to buy more?: never true In the past 12 mos, the food you bought just didn't last and you didn't have money to buy more?: never true Highest level of school completed/degree received: Associate degree: occupational, technical, vocational program Smoking Status: Never smoker Second hand tobacco smoke exposure: No How often do you have a drink containing alcohol: never How often do you have six or more drinks on one occasion: Never AUDIT-C Alcohol total score: 0 Non-prescribed substance use: denies use How often does anyone, including family, friends and others, physically hurt you : never How often does anyone, including family, friends and others, insult or talk down to you: never How often does anyone, including family, friends and others, threaten you with harm: never How often does anyone, including family, friends and others, scream or curse at you: never Little interest or pleasure in doing things: not at all Feeling down, depressed, or hopeless: not at all service: No Meds Home Medications and Allergies Home Medications Medication Instructions Recorded Confirmed Type cetirizine 10 mg tablet 10 mg PO DAILY 03/30/22 12/08/23 History cholecalciferol (vitamin D3) 25 25 mcg PO DAILY 12/08/23 12/08/23 History mcg (1,000 unit) chewable tablet (VitaJoy Daily D) dextroamphetamine-amphetamine ER 20 mg PO QAM PRN 12/08/23 12/08/23 History 20 mg 24hr capsule,extend release (Adderall XR) ferrous sulfate 137 mg (45 mg 45 mg PO DAILY 12/08/23 12/08/23 History iron) tablet,extended release (Slow Fe) multivitamin with minerals-folic 1 tab PO DAILY 12/08/23 12/08/23 History acid 200 mcg chewable tablet (Adult One Daily Gummies) trazodone 50 mg tablet 50 mg PO HS for insomnia 12/08/23 12/08/23 History triamcinolone acetonide 0.1 % 1 applic topical BID PRN 12/08/23 12/08/23 History topical cream Allergies Allergy/AdvReac Type Severity Reaction Status Date / Time Shell fish Allergy Intermediate Anaphylaxis Uncoded 08/21/23 12:40 Exam Narrative: Exam Narrative: General appearance: Alert, cooperative, and in no distress Eyes: PERRLA, eye lids clear, and sclera white HENT Head: Normocephalic Ears: External ears normal Neck: No jugular venous distension. Pulmonary: Breathing nonlabored on room air Cardiovascular Heart: Regular rate Extremities: warm and well perfused Gastrointestinal Abdominal: Midline abdominal incision consistent with patient's surgical history. Abdomen is mildly tender in epigastric region. Musculoskeletal: Extremities: Upper: Both upper extremities have normal joint range of motion and intact strength. Lower: Both lower extremities have normal joint range of motion and in tact strength. Skin: Normal skin color, texture, and turgor. Neurologic: No focal deficits Psychiatric: Alert, oriented, cooperative, normal affect. Const: Vital Signs, click to edit/add: Vital Signs - 24 hr 12/07/23 13:35 12/07/23 17:09 12/07/23 17:10 Temperature 97.7 F Pulse Rate 73 71 Pulse Rate [Pulse Oximeter] 75 Respiratory Rate 26 H Blood Pressure 145/83 H Blood Pressure [Ri ght Upper Arm] 169/92 H Pulse Oximetry 100 100 100 Oxygen Delivery Me thod Room Air 12/07/23 17:11 12/07/23 17:18 Temperature 97.0 F L Pulse Rate 69 Pulse Rate [Pulse Oximeter] Respiratory Rate Blood Pressure Blood Pressure [Ri ght Upper Arm] Pulse Oximetry 100 Oxygen Delivery Me thod Results Labs Labs: Abnormal lab results 12/07/23 12/07/23 Range/Units 14:35 19:28 WBC 12.53 H (4.50-11.00) K/uL Neut % (Auto) 86.1 H (42.0-72.0) % Lymph % (Auto) 9.8 L (20-44) % Neut # (Auto) 10.80 H (1.7-7.0) K/uL Carbon Dioxide 18 L (20-32) mmol/L Glucose 133 H (60-115) mg/dL Lactate 3.1 H (0.5-1.9) mmol/L C-Reactive Protein < 0.5 L (0.5-1.0) mg/dL Urine Appearance Cloudy A (Clear) Urine Ketones 2+ A (Negative) Urine Nitrite Positive A (Negative) Urine Bacteria Many A (None) Diabetes panel 12/07/23 Range/Units 14:35 Sodium 137 (135-149) mmol/L Potassium 4.0 (3.6-5.1) mmol/L Chloride 107 (96-114) mmol/L Carbon Dioxide 18 L (20-32) mmol/L BUN 14 (7-30) mg/dL Creatinine 0.5 (0.5-1.5) mg/dL Glucose 133 H (60-115) mg/dL Calcium 10.1 (8.4-10.6) mg/dL AST 30 (12-35) U/L ALT 28 (4-35) U/L Alkaline Phosphatase 97 (40-150) U/L Total Protein 7.6 (6.0-8.3) g/dL Albumin 4.4 (3.3-5.0) g/dL Calcium panel 12/07/23 Range/Units 14:35 Calcium 10.1 (8.4-10.6) mg/dL Albumin 4.4 (3.3-5.0) g/dL Pituitary panel 12/07/23 Range/Units 14:35 Sodium 137 (135-149) mmol/L Potassium 4.0 (3.6-5.1) mmol/L Chloride 107 (96-114) mmol/L Carbon Dioxide 18 L (20-32) mmol/L BUN 14 (7-30) mg/dL Creatinine 0.5 (0.5-1.5) mg/dL Glucose 133 H (60-115) mg/dL Calcium 10.1 (8.4-10.6) mg/dL Adrenal panel 12/07/23 Range/Units 14:35 Sodium 137 (135-149) mmol/L Potassium 4.0 (3.6-5.1) mmol/L Chloride 107 (96-114) mmol/L Carbon Dioxide 18 L (20-32) mmol/L BUN 14 (7-30) mg/dL Creatinine 0.5 (0.5-1.5) mg/dL Glucose 133 H (60-115) mg/dL Calcium 10.1 (8.4-10.6) mg/dL Total Bilirubin 0.7 (0.1-1.5) mg/dL AST 30 (12-35) U/L ALT 28 (4-35) U/L Alkaline Phosphatase 97 (40-150) U/L Total Protein 7.6 (6.0-8.3) g/dL Albumin 4.4 (3.3-5.0) g/dL All other labs normal. Imaging Abdomen CT scan report/results: report reviewed and image reviewed Additional studies: CT abdomen non-contrast: IMPRESSION: Periduodenal fat stranding and right anterior pararenal small volume free fluid consistent with acute inflammatory changes. By location, duodenitis is favored. Inflammatory changes are predominantly associated with the duodenum rather than the pancreas. Consider gastroenterology consultation for further evaluation (endoscopy). Repeat CT of the abdomen, with contrast: Infiltrate of the fat surrounding the pancreatic head and 3rd portion the duodenal present with ill-defined fluid collection in the left retroperitoneum measuring 40 HU in density. This may be retroperitoneal hematoma associated with duodenitis or pancreatitis involving the pancreatic head. Correlate with amylase and lipase are recommended and previous recommendation for endoscopy is reiterated. Progress Note:A&P Assessment and plan (1) Duodenitis: Status: Acute (2) S/P gastric bypass: Status: Acute Plan Patient is a 58-year-old female with a complex bariatric history consisting of band converted to bypass and prior fistula, now with duodenitis. -patient had difficulty with IV access for resuscitation. Central line placed by me without incident. -recheck labs and continue fluid resuscitation. -awaiting radiology final read on CT scan with contrast. Quick read appears to show duodenitis. Unfortunately, given patient's gastric bypass status, she cannot get endoscopy. Consider treating empirically for H pylori versus checking stool or antibody test. NPO, ppi, nausea medication and resuscitation as needed. - If patient improves, recommend discharge home on PPI with follow-up as an outpatient with bariatric surgery.
--- NOTE | 2023-12-07 21:06 | P.PCN_ITS ---
Procedure Note Date Seen: 12/07/23 Will [facility] bill your pro fee for this procedure?: Yes Pre-op diagnosis: Hypovolemia, need for IV access Post-op diagnosis: same Procedure: Right IJ central line placement under ultrasound guidance Procedure Description: After obtaining informed consent, the neck was prepped and draped sterilely. % lidocaine was injected into the skin overlying the right internal jugular vein. This had been localized with ultrasound prior to starting the procedure. The skin and subcutaneous tissue was anesthetized and a small skin kaci was made using 11 blade. A needle was then advanced with ultrasound-guided into the internal jugular vein which was confirmed by the return of dark blood. Using Seldinger technique, a wire was threaded through the needle. The the needle was then removed. The tract was dilated and a triple-lumen catheter was advanced over the wire. This was secured at 15 cm. All ports were found to aspirate and flush easily. At sterile dressing was applied. Postprocedure film showed the central line in appropriate location in the SVC with no pneumothorax Anesthesia: local Estimated blood loss (mL): 1 Condition: stable
[2023-12-07 21:25] LABS: Lactate* 1.1 mmol/L (0.5-1.9)
[2023-12-07] MEDS: PIPERACILLIN/TAZOBACTAM 3.375 GM in 0.9 % SODIUM CHLORIDE Mini-bag 100 ML IVPB (22:48)
--- NOTE | 2023-12-07 23:03 | P.IMHP_ITS ---
Hospitalist- H&P: HPI History of Present Illness Date Seen: 12/07/23 Chief complaint: vomiting, stomach pain Narrative: Cynthia Black is a 58 year old female with previous Cheri-en-Y gastric bypass presenting with epigastric pain, vomiting and diarrhea starting today. She reports she was in her usual state of fairly good health until this morning. She ate breakfast around 8:00 a.m. and shortly after started having epigastric abdominal pain and she had to loose stools. She has not had any further loose stools or diarrhea. There is no blood in her stools. She has had dry heaves with no substance coming out. No blood. Her pain has gotten gradually worse through the day causing her to present to the emergency department. She has not had a fever. She had Cheri-en-Y gastric bypass in 2009. Prior to that she had a sleeve gastrectomy with complications. Since then she has not had any complications from her Cheri-en-Y. No previous ulcers or vomiting problems. She reports she has otherwise been well. No respiratory illness, fever, shortness of breath, chest pain. No urinary problems. She has had very little to eat or drink today. She reports that 2 weeks ago her family had influenza a. She was very careful and had no symptoms except for mild cold symptoms. She had COVID in July 2023. In the emergency department CT scan showed findings consistent with duodenitis. Repeat CT was done because there was question of whether this was pancreatitis at the head of the pancreas. Her lipase is normal. She does take occasional ibuprofen or naproxen. She has not had any in the last few days but did have some a month or 2 ago for a shoulder that was bothering her. She also had what sounds like a Medrol Dosepak around that time. She rarely drinks alcohol. Review of Systems Narrative: Review of systems is negative except as noted above [facility] Medical History Screening for cervical cancer ?Z12.4 - Encounter for screening for malignant neoplasm of cervix (ICD-10) Bruising ?T14.8XXA - Other injury of unspecified body region, initial encounter (ICD- 10) Thoracic back pain ?M54.6 - Pain in thoracic spine (ICD-10) COVID ?U07.1 - COVID-19 (ICD-10) SCC (squamous cell carcinoma) ?C44.92 - Squamous cell carcinoma of skin, unspecified (ICD-10) Shellfish allergy ?Z91.013 - Allergy to seafood (ICD-10) Medication management ?Z79.899 - Other [place] [facility] (current[facility] drug therapy (ICD-10) Psoriasis ?L40.9 - Psoriasis, unspecified (ICD-10) Adhesive capsulitis ?M75.00 - Adhesive capsulitis of unspecified shoulder (ICD-10) Tendinopathy of rotator cuff ?M67.919 - Unspecified disorder of synovium and tendon, unspecified shoulder (ICD-10) ADHD ?F90.9 - Attention-deficit hyperactivity disorder, unspecified type (ICD-10) Insomnia ?G47.00 - Insomnia, unspecified (ICD-10) Osteoporosis ?M81.0 - Age-related osteoporosis without current pathological fracture (ICD- 10) Osteopenia ?M85.80 - Other specified disorders of bone density and structure, unspecified site (ICD-10) Surgical History H/O bariatric surgery ?Z98.84 - Bariatric surgery status (ICD-10) History of tubal ligation (08/22/11) ?Z98.51 - Tubal ligation status (ICD-10) History of tonsillectomy (07/10/11) ?Z90.89 - Acquired absence of other organs (ICD-10) History of sinus surgery (07/10/11) ?Z98.890 - Other specified postprocedural states (ICD-10) History of gastric bypass (07/10/11) ?Z98.84 - Bariatric surgery status (ICD-10) Family History (Updated 12/07/23 @ 23:08 by Valentino Ojeda MD) Son ADHD Leukemia Father Coronary artery disease High blood pressure High cholesterol Other Heart disease Hyperlipidemia Osteoporosis Social History (Updated 12/07/23 @ 23:09 by Valentino Ojeda MD) Narrative: Nonsmoker. Rarely drinks alcohol She lives in [place] with her . 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 Code status is full. Her 23-year-old son also lives with her. She has a 27-year-old with grandchildren as well. Smoking Status: Never smoker Little interest or pleasure in doing things: not at all Feeling down, depressed, or hopeless: not at all Meds Home Medications and Allergies Home Medications Medication Instructions Recorded Confirmed Type cetirizine 10 mg tablet 10 mg PO DAILY PRN 03/30/22 07/30/23 History iron slow release PO 12/05/22 07/30/23 History Allergies Allergy/AdvReac Type Severity Reaction Status Date / Time Shell fish Allergy Intermediate Anaphylaxis Uncoded 08/21/23 12:40 Exam Narrative: Exam Narrative: She is alert and appears in no obvious distress. Eyes normal. Sclerae nonicteric. Oropharynx is normal. Neck is supple without mass or adenopathy. Central line is placed in the right neck with some bleeding under the dressing. Infusing appropriately. Respirations are clear to auscultation. Cardiovascular: S1, S2, regular rate and rhythm. No murmur gallop or rub. Abdomen: Bowel sounds active. Abdomen is soft with mild epigastric tenderness. She has a well-healed vertical incision from her previous gastric bypass surgery from her xiphoid to umbilicus. No mass. No peritonitis. Extremities with bilateral trace to 1+ edema. Intact pedal pulses. No rash. Const: Vital Signs, click to edit/add: Vital Signs - 24 hr 12/07/23 13:35 12/07/23 17:09 12/07/23 17:10 Temperature 97.7 F Pulse Rate 73 71 Pulse Rate [Pulse Oximeter] 75 Respiratory Rate 26 H Blood Pressure 145/83 H Blood Pressure [Ri ght Upper Arm] 169/92 H Pulse Oximetry 100 100 100 Oxygen Delivery Me thod Room Air 12/07/23 17:11 12/07/23 17:18 Temperature 97.0 F L Pulse Rate 69 Pulse Rate [Pulse Oximeter] Respiratory Rate Blood Pressure Blood Pressure [Ri ght Upper Arm] Pulse Oximetry 100 Oxygen Delivery Me thod Hospitalist - H&P: Result Labs Labs: Short CBC 12/07/23 Range/Units 14:35 WBC 12.53 H (4.50-11.00) K/uL Hgb 12.6 (12.0-16.0) gm/dL Hct 37.4 (33.0-51.0) % Plt Count 331 (140-440) K/uL BMP 12/07/23 14:35 Sodium 137 Potassium 4.0 Chloride 107 Carbon Dioxide 18 L BUN 14 Creatinine 0.5 Glucose 133 H Calcium 10.1 Liver Function 12/07/23 Range/Units 14:35 Total Bilirubin 0.7 (0.1-1.5) mg/dL Direct Bilirubin 0.1 (0.0-0.5) mg/dL AST 30 (12-35) U/L ALT 28 (4-35) U/L Alkaline Phosphatase 97 (40-150) U/L Albumin 4.4 (3.3-5.0) g/dL Urine 12/07/23 Range/Units 19:28 Urine Color Yellow (Yellow) Urine Appearance Cloudy A (Clear) Urine pH 8.5 (5.0-8.5) Ur Specific [place] 1.020 (1.000-1.030) Urine Protein Negative (Negative) Urine Glucose (UA) Negative (Negative) Imaging CT scan - abdomen: Radiologist's impression: Patient: CYNTHIA BLACK Facility:?[facility] Patient ID:?[id number] Site Patient ID:?[id number]. Site :?[id number] Study:?CT Abdomen/Pelvis W/ISOVUE 370 95CC-12/07/2023 9:11:53 PM Ordering Physician:BASILIO Final Report: INDICATION: Abdominal pain TECHNIQUE: CT Abdomen and pelvis with i.v. contrast. Coronal and sagittal reformats were obtained. CONTRAST: 95 mL Isovue 370 COMPARISON: 12/07/2023, 01/29/2023 FINDINGS: Lower chest: Unremarkable. Liver: Unremarkable. Spleen: Unremarkable. Pancreas: Infiltration of the fat surrounding the pancreatic head and 3rd portion of the duodenal present with an ill-defined fluid collection in the left retroperitoneum measuring approximately 40 HU in density. Gallbladder: Unremarkable. Kidney: Unremarkable. No kidney or ureteral stones or obstruction seen. Adrenal: Unremarkable. Bowel: Previous antegastric-antecolic gastric bypass noted with no definite obstruction of the biliopancreatic limb or Cheri-en-Y loop seen. The appendix is not identified. 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 Lymph: Unremarkable. Peritoneum: Unremarkable. No pneumoperitoneum is seen. No significant ascites is noted. Pelvis: A cyst or follicle is present within the right ovary measuring 2 cm. Soft tissue: Unremarkable. Bone: Unremarkable for age. IMPRESSION: 1. Infiltration of the fat surrounding the pancreatic head and 3rd portion of the duodenal present with an ill-defined fluid collection in the left retroperitoneum measuring approximately 40 HU in density. This may be due to retroperitoneal hematoma associated with duodenitis or pancreatitis involving the pancreatic head. Correlation with amylase and lipase levels are recommended and previous recommendation for endoscopy is reiterated. Dictated by Daryl Romero MD @ 12/07/2023 10:13:01 PM Please note that all CT scans at this facility use dose modulation, iterative reconstruction, and/or weight-based dosing when appropriate to reduce radiation dose to as low as reasonably achievable. Dictated by: Daryl Romero MD @ 12/07/2023 22:13:05 (Electronic Signature) Assessment and Plan Assessment and plan (1) Duodenitis: Problem comment: Likely the cause of her pain. Due to her Cheri-en-Y gastric bypass is not a good candidate for upper endoscopy. Empiric treatment with PPI. Stop NSAIDs. Test for H pylori. Consider empiric treatment for H pylori when she can take oral medications. Due to elevated lactate, elevated white count and diagnostic uncertainty patient was started on piperacillin tazobactam. Will continue that pending clinical course and cultures. Status: Acute (2) S/P gastric bypass: Status: Acute (3) Medication management: Problem comment: Unable to take oral medications tonight. As her nausea tolerates this will introduce medications tomorrow. Long-term plan to avoid NSAIDs Status: Acute Plan Patient is admitted the hospital for IV fluids, IV medications, IV antibiotics and monitoring of signs and symptoms of illness, labs and blood cultures. Unable to tolerate anything p.o. at this time so to this through the IV. Central line is placed due to very poor IV access. Total Time Spent Total Time Spent: Total time spent today is 75 minutes, 50 minutes in coordination of care and discussing with patient and other providers ongoing management of duodenitis and complications of Cheri-en-Y gastric bypass
[2023-12-08] MEDS: LACTATED RINGERS 1000 ML 1,000 ML 125 ML IV ×3 (00:19→16:07)
[2023-12-08] MEDS: HYDROmorphone 0.5 mg/0.5 ml inj IVP ×5 (00:44→21:40)
[2023-12-08] MEDS: SODIUM CHLORIDE 0.9 % (FLUSH) 10 ML SYRINGE 5 ML IVF ×6 (00:44→21:25)
[2023-12-08 02:54] VITALS: BP 142/77; PULSE 70; RESP 20; TEMP 36.9; O2SAT 95
--- NOTE | 2023-12-08 04:20 | PC.NURSE ---
Shift note: Pt was received from ED to the unit at 2345 on admission bed. Pt was alert and oriented on arrival, had central IV to the right neck. Pt confirmed epigastric pain of 5/10. headache related to the central line insertion, and mild nausea. Admission assessment completed, oriented to her room and bed given. Unable to get stool sample for laboratory investigation, pt was able urinate about 700ml of clear urine on arrival. Pt medication given as ordered. No fever recorded, systolic Bp >140. Pt had adequate sleep.
[2023-12-08] MEDS: PIPERACILLIN/TAZOBACTAM 3.375 GM in 0.9 % SODIUM CHLORIDE Mini-bag 100 ML IVPB ×4 (04:59→23:16)
[2023-12-08 06:39] LABS: Basophils Absolute Auto 0.05 K/uL (0.00-0.30); Basophils Percent Auto 0.5 % (0.0-3.0); Eosinophils Absolute Auto 0.02 K/uL (0.00-0.50); Eosinophils Percent Auto 0.2 % (0.0-7.0); Hematocrit* 33.4 % (33.0-51.0); Hemoglobin* 10.9 gm/dL (12.0-16.0); Immature Granulocytes Abs Auto 0.02 K/uL (0.00-0.30); Immature Granulocytes Pct Auto 0.2 %; Lymphocytes Absolute Auto 2.47 K/uL (0.90-2.90); Lymphocytes Percent Auto 24.6 % (20-44); Mean Corpuscular HGB Conc 33 gm/dL (32-36); Mean Corpuscular Hemoglobin 31 pg (26-34); Mean Corpuscular Volume 95 fL (80-100); Monocytes Percent Auto 9.9 % (0.0-11.0); Neutrophils Absolute Auto 6.48 K/uL (1.7-7.0); Neutrophils Percent Auto 64.6 % (42.0-72.0); Platelet Count* 294 K/uL (140-440); Red Blood Count* 3.51 m/uL (4.00-5.20); White Blood Count* 10.03 K/uL (4.50-11.00)
[2023-12-08 06:46] LABS: Slide Review Reflex No
[2023-12-08 06:51] LABS: Chloride* 110 mmol/L (96-114); Potassium* 3.6 mmol/L (3.6-5.1); Sodium* 139 mmol/L (135-149)
[2023-12-08 06:54] LABS: Anion Gap 6 mEq/L (7-15); Carbon Dioxide* 23 mmol/L (20-32); Creatinine* 0.5 mg/dL (0.5-1.5); Est. Creatinine Clearance* 117.61; Estimated Glomerular Filt Rate 110 ml/min
[2023-12-08 06:55] LABS: Blood Urea Nitrogen* 11 mg/dL (7-30); Calcium* 8.6 mg/dL (8.4-10.6); Glucose* 110 mg/dL (60-115)
[2023-12-08 08:23] VITALS: BP 152/84; PULSE 75; RESP 18; TEMP 36.3; O2SAT 91
[2023-12-08] MEDS: HEPARIN 500 UNIT/5 ML SYRINGE IVF ×4 (09:27→21:49)
[2023-12-08] MEDS: PANTOPRAZOLE SODIUM 40 MG INJ IVP (09:27)
[2023-12-08] MEDS: OMEPRAZOLE 20 MG CAPSULE DR PO (09:35)
[2023-12-08 11:00] VITALS: BP 150/85; PULSE 75; RESP 16; TEMP 36.2; O2SAT 98
[2023-12-08] MEDS: ONDANSETRON 2 MG/ML inj 4 MG IVP ×3 (11:12→21:39)
--- NOTE | 2023-12-08 11:51 | P.IMPN_ITS ---
Progress Note: A&P Assessment and plan (1) Duodenitis: Problem details: Likely the cause of her pain. Due to her Cheri-en-Y gastric bypass is not a good candidate for upper endoscopy. Empiric treatment with PPI. Stop NSAIDs. Test for H pylori. Consider empiric treatment for H pylori when she can take oral medications. Due to elevated lactate, elevated white count and diagnostic uncertainty patient was started on piperacillin tazobactam. Will continue that pending clinical course and cultures. Advanced to clear liquid diet today. Status: Acute (2) S/P gastric bypass: Status: Acute (3) Medication management: Problem details: Switch from IV to oral medications. Status: Acute Plan Continue in hospital for monitoring of duodenitis, abdominal pain, vomiting, tolerance of oral intake. Time Spent With Patient Total time spent: Total time spent today is 35 minutes, 25 minutes in coordination of care discussing with patient and other providers management of duodenitis and complications of Cheri-en-Y gastric bypass. Subjective Date Seen: 12/08/23 Interval history: HPI: Cynthia Black is a 58 year old female with previous Cheri-en-Y gastric bypass presenting with epigastric pain, vomiting and diarrhea starting today. She reports she was in her usual state of fairly good health until this morning. She ate breakfast around 8:00 a.m. and shortly after started having epigastric abdominal pain and she had to loose stools. She has not had any further loose stools or diarrhea. There is no blood in her stools. She has had dry heaves with no substance coming out. No blood. Her pain has gotten gradually worse through the day causing her to present to the emergency department. She has not had a fever. She had Cheri-en-Y gastric bypass in 2009. Prior to that she had a sleeve gastrectomy with complications. Since then she has not had any complications from her Cheri-en-Y. No previous ulcers or vomiting problems. She reports she has otherwise been well. No respiratory illness, fever, shortness of breath, chest pain. No urinary problems. She has had very little to eat or drink today. She reports that 2 weeks ago her family had influenza a. She was very careful and had no symptoms except for mild cold symptoms. She had COVID in July 2023. In the emergency department CT scan showed findings consistent with duodenitis. Repeat CT was done because there was question of whether this was pancreatitis at the head of the pancreas. Her lipase is normal. She does take occasional ibuprofen or naproxen. She has not had any in the last few days but did have some a month or 2 ago for a shoulder that was bothering her. She also had what sounds like a Medrol Dosepak around that time. She rarely drinks alcohol. Overnight she was treated with PPI and IV fluids. She reports feeling quite a bit better this morning. She would like to drink more liquids today. Her diar derek has resolved. She has not had any vomiting overnight. Her abdominal pain is better. Exam Narrative: Exam Narrative: She is alert and appears in no distress. Respirations are clear to auscultation. Cardiovascular: S1, S2, regular rate and rhythm. Abdomen: Bowel sounds active. Abdomen is soft with minimal epigastric tenderness today. No mass. No peritonitis. Extremities normal. Const: Vital Signs, click to edit/add: Vital Signs - 24 hr 12/07/23 13:35 12/07/23 17:09 12/07/23 17:10 Temperature 97.7 F Pulse Rate 73 71 Pulse Rate [Left P ulse Oximeter] Pulse Rate [Pulse Oximeter] 75 Respiratory Rate 26 H Blood Pressure 145/83 H Blood Pressure [Le ft Arm] Blood Pressure [Ri ght Upper Arm] 169/92 H Pulse Oximetry 100 100 100 Oxygen Delivery Me thod Room Air 12/07/23 17:11 12/07/23 17:18 12/07/23 23:00 Temperature 97.0 F L 98.7 F Pulse Rate 69 Pulse Rate [Left P ulse Oximeter] 83 Pulse Rate [Pulse Oximeter] Respiratory Rate 20 Blood Pressure Blood Pressure [Le ft Arm] 140/88 H Blood Pressure [Ri ght Upper Arm] Pulse Oximetry 100 95 Oxygen Delivery Me thod Room Air 12/07/23 23:52 12/08/23 02:54 12/08/23 08:23 Temperature 98.7 F 98.4 F 97.4 F L Pulse Rate Pulse Rate [Left P ulse Oximeter] 83 70 75 Pulse Rate [Pulse Oximeter] Respiratory Rate 20 20 18 Blood Pressure Blood Pressure [Le ft Arm] 142/77 H 152/84 H Blood Pressure [Ri ght Upper Arm] Pulse Oximetry 95 95 91 Oxygen Delivery Me thod Room Air Room Air Room Air Documenting provider has reviewed patient's vital signs: yes Labs Labs: Laboratory Results - last 24 hr 12/07/23 12/07/23 12/07/23 14:35 19:28 21:15 WBC 12.53 H RBC 4.05 Hgb 12.6 Hct 37.4 MCV 92 MCH 31 MCHC 34 RDW Coeff of Demetri 12.3 Plt Count 331 Neut % (Auto) 86.1 H Lymph % (Auto) 9.8 L [place] % (Auto) 3.6 Eos % (Auto) 0.0 Baso % (Auto) 0.3 Neut # (Auto) 10.80 H Lymph # (Auto) 1.20 [place] # (Auto) 0.50 Eos # (Auto) 0.00 Baso # (Auto) 0.00 Abs Immat Gran (auto) 0.00 Imm/Tot Granulo (auto) 0.2 Sodium 137 Potassium 4.0 Chloride 107 Carbon Dioxide 18 L Anion Gap 12 BUN 14 Creatinine 0.5 Estimated Creat Clear 117.61 Estimated GFR 110 Glucose 133 H Lactate 3.1 H 1.1 Calcium 10.1 Total Bilirubin 0.7 Direct Bilirubin 0.1 AST 30 ALT 28 Alkaline Phosphatase 97 C-Reactive Protein < 0.5 L Total Protein 7.6 Albumin 4.4 Lipase 97 Urine Color Yellow Urine Appearance Cloudy A Urine pH 8.5 Ur Specific [place] 1.020 Urine Protein Negative Urine Glucose (UA) Negative Urine Ketones 2+ A Urine Blood Negative Urine Nitrite Positive A Urine Bilirubin Negative Urine Urobilinogen 0.2 Ur Leukocyte Esterase Negative Urine RBC 0-2 Urine WBC 0-2 Ur Squamous Epith Cells None Urine Bacteria Many A 12/08/23 05:49 WBC 10.03 RBC 3.51 L Hgb 10.9 L Hct 33.4 MCV 95 MCH 31 MCHC 33 RDW Coeff of Demetri 13.0 Plt Count 294 Neut % (Auto) 64.6 Lymph % (Auto) 24.6 [place] % (Auto) 9.9 Eos % (Auto) 0.2 Baso % (Auto) 0.5 Neut # (Auto) 6.48 Lymph # (Auto) 2.47 [place] # (Auto) 1.00 H Eos # (Auto) 0.02 Baso # (Auto) 0.05 Abs Immat Gran (auto) 0.02 Imm/Tot Granulo (auto) 0.2 Sodium 139 Potassium 3.6 Chloride 110 Carbon Dioxide 23 Anion Gap 6 L BUN 11 Creatinine 0.5 Estimated Creat Clear 117.61 Estimated GFR 110 Glucose 110 Lactate Calcium 8.6 Total Bilirubin Direct Bilirubin AST ALT Alkaline Phosphatase C-Reactive Protein Total Protein Albumin Lipase Urine Color Urine Appearance Urine pH Ur Specific [place] Urine Protein Urine Glucose (UA) Urine Ketones Urine Blood Urine Nitrite Urine Bilirubin Urine Urobilinogen Ur Leukocyte Esterase Urine RBC Urine WBC Ur Squamous Epith Cells Urine Bacteria
--- NOTE | 2023-12-08 12:47 | PM.GSPN ---
Subjective Subjective Date Seen: 12/08/23 Interval history: Overnight was feeling better. She attempted to taken clear liquids, however she had significant nausea and pain with this. She was again made NPO. Patient feels more distended this morning. Exam Narrative: Exam Narrative: General: No acute distress CV: Regular rate Abdomen: Mildly tender in the upper abdomen. Const: Vital Signs, click to edit/add: Vital Signs - 24 hr 12/07/23 13:35 12/07/23 17:09 12/07/23 17:10 Temperature 97.7 F Pulse Rate 73 71 Pulse Rate [Left P ulse Oximeter] Pulse Rate [Pulse Oximeter] 75 Respiratory Rate 26 H Blood Pressure 145/83 H Blood Pressure [Le ft Arm] Blood Pressure [Ri ght Upper Arm] 169/92 H Pulse Oximetry 100 100 100 Oxygen Delivery Me thod Room Air 12/07/23 17:11 12/07/23 17:18 12/07/23 23:00 Temperature 97.0 F L 98.7 F Pulse Rate 69 Pulse Rate [Left P ulse Oximeter] 83 Pulse Rate [Pulse Oximeter] Respiratory Rate 20 Blood Pressure Blood Pressure [Le ft Arm] 140/88 H Blood Pressure [Ri ght Upper Arm] Pulse Oximetry 100 95 Oxygen Delivery Me thod Room Air 12/07/23 23:52 12/08/23 02:54 12/08/23 08:23 Temperature 98.7 F 98.4 F 97.4 F L Pulse Rate Pulse Rate [Left P ulse Oximeter] 83 70 75 Pulse Rate [Pulse Oximeter] Respiratory Rate 20 20 18 Blood Pressure Blood Pressure [Le ft Arm] 142/77 H 152/84 H Blood Pressure [Ri ght Upper Arm] Pulse Oximetry 95 95 91 Oxygen Delivery Me thod Room Air Room Air Room Air Labs/Imaging Labs Labs: White blood cell count today is 10 from 12.5 Hemoglobin is 10.9 from 12.6. Repeat lactate yesterday evening 1.1 Progress Note:A&P Assessment and plan (1) Duodenitis: Status: Acute (2) S/P gastric bypass: Status: Acute Plan The patient is a 58-year-old female with epigastric pain and CT findings concerning for duodenitis versus pancreatitis. With life he is being normal, duodenitis seems more likely. The cough is unclear. Semi recent steroid and NSAID use, however this has not been excessive per the patient's report and was several weeks ago. - Recommend H pylori testing and or empiric treatment with PPI and antibiotics - n.p.o. until pain resolves. - if patient improves, recommend outpatient follow-up with bariatric surgery for possible laparoscopic endoscopy to evaluate for duodenal ulcer. If she worsens acutely while inpatient then she should transfer to a center with bariatric surgery.
[2023-12-08 15:22] VITALS: BP 136/85; PULSE 73; RESP 16; TEMP 36.5; O2SAT 98
--- NOTE | 2023-12-08 17:56 | PC.NURSE ---
Shift Summary: Patient pleasant and cooperative. Increased nausea and pain following clear liquids, now NPO again. Patient right arm still puffy due to infiltrated IV yesterday. This afternoon patient has had increased nausea with movement as well, given PRN medication with relief. C/o pain in neck due to central line, placed ice pack wrapped in a pillow case behind head/neck with some relief. Patient heard dry heaving x2 in room, no emesis noted. Patient c/o feeling puffy, edema noted in limbs, lung sounds still clear, decreased IV fluids to 30cc/hr.
[2023-12-08 21:20] VITALS: BP 153/93; PULSE 70; RESP 16; TEMP 36.9; O2SAT 95
[2023-12-08 23:20] VITALS: BP 154/90; PULSE 63; RESP 16; TEMP 36.8; O2SAT 96
[2023-12-09 02:42] VITALS: RESP 16
[2023-12-09] MEDS: HEPARIN 500 UNIT/5 ML SYRINGE IVF ×5 (05:24→20:56)
[2023-12-09] MEDS: SODIUM CHLORIDE 0.9 % (FLUSH) 10 ML SYRINGE 5 ML IVF ×7 (05:24→20:55)
[2023-12-09] MEDS: PIPERACILLIN/TAZOBACTAM 3.375 GM in 0.9 % SODIUM CHLORIDE Mini-bag 100 ML IVPB ×4 (05:25→23:00)
[2023-12-09 05:41] LABS: Basophils Absolute Auto 0.04 K/uL (0.00-0.30); Basophils Percent Auto 0.6 % (0.0-3.0); Eosinophils Absolute Auto 0.05 K/uL (0.00-0.50); Eosinophils Percent Auto 0.7 % (0.0-7.0); Hematocrit* 29.9 % (33.0-51.0); Hemoglobin* 9.8 gm/dL (12.0-16.0); Immature Granulocytes Abs Auto 0.01 K/uL (0.00-0.30); Immature Granulocytes Pct Auto 0.1 %; Lymphocytes Absolute Auto 2.17 K/uL (0.90-2.90); Lymphocytes Percent Auto 30.3 % (20-44); Mean Corpuscular HGB Conc 33 gm/dL (32-36); Mean Corpuscular Hemoglobin 31 pg (26-34); Mean Corpuscular Volume 96 fL (80-100); Monocytes Percent Auto 9.9 % (0.0-11.0); Neutrophils Absolute Auto 4.17 K/uL (1.7-7.0); Neutrophils Percent Auto 58.4 % (42.0-72.0); Platelet Count* 225 K/uL (140-440); RDW Coefficient of Variation % 12.7 % (11.5-15.5); Red Blood Count* 3.13 m/uL (4.00-5.20); White Blood Count* 7.15 K/uL (4.50-11.00)
[2023-12-09 06:01] LABS: Chloride* 105 mmol/L (96-114); Potassium* 3.2 mmol/L (3.6-5.1); Sodium* 136 mmol/L (135-149)
[2023-12-09 06:02] LABS: Slide Review Reflex No
[2023-12-09 06:04] LABS: Anion Gap 1 mEq/L (7-15); Blood Urea Nitrogen* 8 mg/dL (7-30); Calcium* 8.8 mg/dL (8.4-10.6); Carbon Dioxide* 30 mmol/L (20-32); Creatinine* 0.5 mg/dL (0.5-1.5); Est. Creatinine Clearance* 117.61; Estimated Glomerular Filt Rate 110 ml/min; Glucose* 98 mg/dL (60-115)
[2023-12-09 08:00] VITALS: BP 136/82; PULSE 69; RESP 18; TEMP 36.3; O2SAT 94
[2023-12-09] MEDS: LACTATED RINGERS 1000 ML 1,000 ML 75 ML IV ×2 (09:15→23:02)
[2023-12-09] MEDS: CLARITHROMYCIN 500 MG TABLET PO ×2 (09:16→20:56)
[2023-12-09] MEDS: ONDANSETRON 2 MG/ML inj 4 MG IVP (09:16)
[2023-12-09] MEDS: PANTOPRAZOLE SODIUM 40 MG INJ IVP ×2 (09:16→20:54)
[2023-12-09] MEDS: POTASSIUM CHLORIDE 10 MEQ CAPSULE ER PO ×3 (10:52→17:15)
[2023-12-09 11:00] VITALS: BP 151/92; PULSE 72; RESP 20; TEMP 36.9; O2SAT 95
[2023-12-09] MEDS: 0.9 % SODIUM CHLORIDE 250 ml IV (11:18)
--- NOTE | 2023-12-09 13:26 | P.IMPN_ITS ---
Progress Note: A&P Assessment and plan (1) Duodenitis: Problem details: Likely the cause of her pain. Due to her Cheri-en-Y gastric bypass is not a good candidate for upper endoscopy. Empiric treatment with PPI. Stop NSAIDs. Test for H pylori. Consider empiric treatment for H pylori when she can take oral medications. Due to elevated lactate, elevated white count and diagnostic uncertainty patient was started on piperacillin tazobactam. Will continue that pending clinical course and cultures. Advanced to clear liquid diet as tolerated. Status: Acute (2) S/P gastric bypass: Status: Acute Plan Continue in hospital for IV fluids, IV antibiotics, IV medications to treat symptoms. Time Spent With Patient Total time spent: Total time spent today is 40 minutes, 30 minutes in coordination of care and discussing with patient other providers management of duodenitis and other symptoms related to gastric bypass Subjective Date Seen: 12/09/23 Interval history: HPI: Cynthia Black is a 58 year old female with previous Cheri-en-Y gastric bypass presenting with epigastric pain, vomiting and diarrhea starting today. She reports she was in her usual state of fairly good health until this morning. She ate breakfast around 8:00 a.m. and shortly after started having epigastric abdominal pain and she had to loose stools. She has not had any further loose stools or diarrhea. There is no blood in her stools. She has had dry heaves with no substance coming out. No blood. Her pain has gotten gradually worse through the day causing her to present to the emergency department. She has not had a fever. She had Cheri-en-Y gastric bypass in 2009. Prior to that she had a sleeve gastrectomy with complications. Since then she has not had any complications from her Cheri-en-Y. No previous ulcers or vomiting problems. She reports she has otherwise been well. No respiratory illness, fever, shortness of breath, chest pain. No urinary problems. She has had very little to eat or drink today. She reports that 2 weeks ago her family had influenza a. She was very careful and had no symptoms except for mild cold symptoms. She had COVID in July 2023. In the emergency department CT scan showed findings consistent with duodenitis. Repeat CT was done because there was question of whether this was pancreatitis at the head of the pancreas. Her lipase is normal. She does take occasional ibuprofen or naproxen. She has not had any in the last few days but did have some a month or 2 ago for a shoulder that was bothering her. She also had what sounds like a Medrol Dosepak around that time. She rarely drinks alcohol. December 07: Overnight she was treated with PPI and IV fluids. She reports feeling quite a bit better this morning. She would like to drink more liquids today. Her diarrhea has resolved. She has not had any vomiting overnight. Her abdominal pain is better. During the day she took in some clear liquids and became quite nauseated. She reports an urge to vomit but can not because of her gastric bypass surgery. December 08. Has some nausea but overall her pain is better. She is quite apprehensive about swallowing any food or fluid. She has taken about 8 oz of ice chips overnight and tolerated that okay. She is passing gas. No diarrhea. She felt some abdominal bloating and so the IV rate was decreased. She did not have any extremity edema. Exam Narrative: Exam Narrative: She is alert and appears in no distress. Mood and affect are bright. Respirations are clear to auscultation. Cardiovascular: S1, S2, regular rate and rhythm. Abdomen: Bowel sounds active. Abdomen is soft with minimal epigastric tenderness and no mass. No edema Const: Vital Signs, click to edit/add: Vital Signs - 24 hr 12/08/23 15:22 12/08/23 21:20 12/08/23 23:20 Temperature 97.7 F 98.4 F Pulse Rate [Left P ulse Oximeter] 73 70 Respiratory Rate 16 16 16 Blood Pressure [Le ft Arm] 136/85 153/93 H Blood Pressure [Ri ght Arm] Pulse Oximetry 98 95 Oxygen Delivery Me thod Room Air Room Air 12/08/23 23:20 12/09/23 02:42 12/09/23 08:00 Temperature 98.3 F 97.3 F L Pulse Rate [Left P ulse Oximeter] 63 69 Respiratory Rate 16 16 18 Blood Pressure [Le ft Arm] 154/90 H Blood Pressure [Ri ght Arm] 136/82 Pulse Oximetry 96 94 Oxygen Delivery Me thod Room Air Room Air 12/09/23 11:00 Temperature 98.5 F Pulse Rate [Left P ulse Oximeter] 72 Respiratory Rate 20 Blood Pressure [Le ft Arm] Blood Pressure [Ri ght Arm] 151/92 H Pulse Oximetry 95 Oxygen Delivery Me thod Room Air Documenting provider has reviewed patient's vital signs: yes Labs Labs: Laboratory Results - last 24 hr 12/09/23 05:30 WBC 7.15 RBC 3.13 L Hgb 9.8 L Hct 29.9 L MCV 96 MCH 31 MCHC 33 RDW Coeff of Demetri 12.7 Plt Count 225 Neut % (Auto) 58.4 Lymph % (Auto) 30.3 [place] % (Auto) 9.9 Eos % (Auto) 0.7 Baso % (Auto) 0.6 Neut # (Auto) 4.17 Lymph # (Auto) 2.17 [place] # (Auto) 0.70 Eos # (Auto) 0.05 Baso # (Auto) 0.04 Abs Immat Gran (auto) 0.01 Imm/Tot Granulo (auto) 0.1 Sodium 136 Potassium 3.2 L Chloride 105 Carbon Dioxide 30 Anion Gap 1 L BUN 8 Creatinine 0.5 Estimated Creat Clear 117.61 Estimated GFR 110 Glucose 98 Calcium 8.8
[2023-12-09 15:30] VITALS: BP 142/87; PULSE 71; RESP 18; TEMP 36.8; O2SAT 95
--- NOTE | 2023-12-09 18:35 | PC.NURSE ---
Pt up independently in room and in lucero. Rates pain in abdomen and neck/head 0-3/10, no medication intervention needed, ice and repositioning successful. Pt tolerates clear liquid diet, advanced to full with no complain of N/V or increased abdominal discomfort. Passing gas, no BM.
[2023-12-09 20:40] LABS: H pylori Ag Stool* Negative (Negative)
[2023-12-09] MEDS: TRAZODONE HCL 50 MG TABLET PO (20:55)
[2023-12-09 20:57] VITALS: BP 138/80; PULSE 84; RESP 16; TEMP 36.8; O2SAT 94
[2023-12-09 23:50] VITALS: BP 156/85; PULSE 82; RESP 16; TEMP 36.6; O2SAT 94
[2023-12-10] MEDS: PIPERACILLIN/TAZOBACTAM 3.375 GM in 0.9 % SODIUM CHLORIDE Mini-bag 100 ML IVPB (05:18)
[2023-12-10] MEDS: SODIUM CHLORIDE 0.9 % (FLUSH) 10 ML SYRINGE 5 ML IVF ×4 (05:18→08:39)
[2023-12-10] MEDS: HEPARIN 500 UNIT/5 ML SYRINGE IVF ×2 (05:19→08:38)
[2023-12-10 05:31] VITALS: RESP 14
[2023-12-10 05:40] LABS: Basophils Absolute Auto 0.07 K/uL (0.00-0.30); Eosinophils Percent Auto 1.5 % (0.0-7.0); Hematocrit* 26.9 % (33.0-51.0); Hemoglobin* 8.8 gm/dL (12.0-16.0); Immature Granulocytes Abs Auto 0.02 K/uL (0.00-0.30); Immature Granulocytes Pct Auto 0.3 %; Lymphocytes Absolute Auto 2.42 K/uL (0.90-2.90); Mean Corpuscular HGB Conc 33 gm/dL (32-36); Mean Corpuscular Hemoglobin 32 pg (26-34); Mean Corpuscular Volume 97 fL (80-100); Monocytes Percent Auto 10.7 % (0.0-11.0); Neutrophils Absolute Auto 3.39 K/uL (1.7-7.0); Neutrophils Percent Auto 50.5 % (42.0-72.0); Platelet Count* 241 K/uL (140-440); RDW Coefficient of Variation % 12.8 % (11.5-15.5); Red Blood Count* 2.78 m/uL (4.00-5.20); White Blood Count* 6.72 K/uL (4.50-11.00)
[2023-12-10 05:54] LABS: Chloride* 108 mmol/L (96-114); Sodium* 139 mmol/L (135-149)
[2023-12-10 05:55] LABS: Potassium* 3.3 mmol/L (3.6-5.1)
[2023-12-10 05:57] LABS: Anion Gap 1 mEq/L (7-15); Blood Urea Nitrogen* 5 mg/dL (7-30); Carbon Dioxide* 30 mmol/L (20-32); Creatinine* 0.6 mg/dL (0.5-1.5); Est. Creatinine Clearance* 98.01; Estimated Glomerular Filt Rate 105 ml/min
[2023-12-10 05:58] LABS: Calcium* 8.2 mg/dL (8.4-10.6); Glucose* 92 mg/dL (60-115)
--- NOTE | 2023-12-10 06:21 | PC.NURSE ---
Pt alert and oriented x3. Afebrile. Pt denies pain, chest pain, SOB, nausea. Pt reports feeling ?much better?.?Pt?s central catheter is patent, and dressing is CDI, there is dried blood and some bruising underneath dressing. Pt is voiding, tolerating a full liquid diet, and is up ad patti in room. Pt slept throughout most of night. Night uneventful.??
[2023-12-10 06:33] LABS: Slide Review Reflex No
[2023-12-10 08:05] VITALS: BP 123/70; PULSE 72; RESP 16; TEMP 36.6; O2SAT 90
[2023-12-10] MEDS: MULTIVITAMIN/MINERALS 1 TABLET 1 TAB PO (08:37)
[2023-12-10] MEDS: POTASSIUM CHLORIDE 10 MEQ CAPSULE ER PO (08:37)
[2023-12-10] MEDS: CLARITHROMYCIN 500 MG TABLET PO (08:38)
[2023-12-10] MEDS: PANTOPRAZOLE SODIUM 40 MG INJ IVP (08:38)
[2023-12-10] MEDS: FERROUS SULFATE 325 MG TABLET PO (08:38)
[2023-12-10] MEDS: POTASSIUM BICARB 25 MEQ EFFERVESCENT TAB 50 MEQ PO (09:59)
--- NOTE | 2023-12-10 10:24 | PM.GSPN ---
Subjective Subjective Date Seen: 12/10/23 Interval history: Cynthia is doing better. her pain is gone and she is tolerating a regular diet without nausea. Having bowel movements. They have been loose. Exam Narrative: Exam Narrative: General: NAD Abdomen: soft, nontender, non distended. Const: Vital Signs, click to edit/add: Vital Signs - 24 hr 12/09/23 11:00 12/09/23 15:30 12/09/23 20:57 Temperature 98.5 F 98.3 F 98.3 F Pulse Rate [Left P ulse Oximeter] 72 71 84 Respiratory Rate 20 18 16 Blood Pressure [Le ft Arm] Blood Pressure [Ri ght Arm] 151/92 H 142/87 H 138/80 Pulse Oximetry 95 95 94 Oxygen Delivery Me thod Room Air Room Air Room Air 12/09/23 23:50 12/10/23 05:31 12/10/23 08:05 Temperature 97.8 F 97.8 F Pulse Rate [Left P ulse Oximeter] 82 72 Respiratory Rate 16 14 16 Blood Pressure [Le ft Arm] 156/85 H 123/70 Blood Pressure [Ri ght Arm] Pulse Oximetry 94 90 Oxygen Delivery Me thod Room Air Room Air Labs/Imaging Labs Labs: WBC 6.72 today Progress Note:A&P Assessment and plan (1) Duodenitis: Status: Acute (2) S/P gastric bypass: Status: Acute Plan The patient is a 58-year-old female with duodenitis min setting of prior revisional gastric bypass. She now appears to have resolved all of her symptoms. -recommend that she continue on a PPI and be treated for H pylori. -she should follow-up with bariatric surgery as an outpatient. They can determine whether not upper endoscopy is needed.
[2023-12-10 11:06] VITALS: BP 133/77; PULSE 71; RESP 14; TEMP 36.8; O2SAT 97
--- NOTE | 2023-12-10 12:17 | PC.NURSE ---
Discharge: Patient pleasant and cooperative. Up independently in room, diet advanced to regular for breakfast, tolerated meal well. Denied pain/nausea following meal. Vitals stable and WNL. Central line removed using sterile technique, given directions on dressing care, told not to remove dressing over site for at least 24hrs, informed of signs/symptoms of complications. Reviewed follow up and new medication orders. Patient discharged @ 1158 via wheelchair, met at front entrance to bring home.
--- NOTE | 2023-12-10 12:49 | P.DS_ITS ---
DS: Providers Provider Date Seen: 12/10/23 Date of admission: 12/07/23 23:52 Primary care physician: Anais Ortega Admitting Clinician: Valentino Ojeda MD Attending Physician on discharge: Valentino Ojeda MD Date of Discharge: 12/10/23 DS: Diagnosis Discharge Diagnosis (1) Duodenitis: Status: Acute Problem details: Likely the cause of her pain. Due to her Cheri-en-Y gastric bypass is not a good candidate for upper endoscopy. Empiric treatment with PPI. Stop NSAIDs. Test for H pylori. Empiric treatment for H pylori with omeprazole 20 mg, clar ithromycin 500 mg, amoxicillin 1000 mg b.i.d. for 2 weeks. Due to elevated lactate, elevated white count and diagnostic uncertainty patient was started on piperacillin tazobactam. Will continue that pending clinical course and cultures. Advanced to clear liquid diet as tolerated. (2) S/P gastric bypass: Status: Acute Problem details: Recommend outpatient follow-up with surgeon performing gastric bypass regarding recent episode of duodenitis. (3) Anemia: Status: Acute Problem details: Patient has longstanding anemia thought secondary to iron deficiency secondary to gastric bypass. She is on oral iron. Hemoglobin on admission was 12.6 and dropped to 8.8 during her hospital stay. This was thought to be due to dilution as she was quite dehydrated on admission. No sign of active bleeding. Recom mend outpatient hemoglobin and also possible iron studies. Patient may not absorb oral iron secondary to gastric bypass surgery. Consider IV iron DS: Summary Hospital Course Hospital Course: HPI: Cynthia Donnelly is a 58 year old female with previous Cheri-en-Y gastric bypass presenting with epigastric pain, vomiting and diarrhea starting today. She reports she was in her usual state of fairly good health until this morning. She ate breakfast around 8:00 a.m. and shortly after started having epigastric abdominal pain and she had to loose stools. She has not had any further loose stools or diarrhea. There is no blood in her stools. She has had dry heaves with no substance coming out. No blood. Her pain has gotten gradually worse through the day causing her to present to the emergency department. She has not had a fever. She had Cheri-en-Y gastric bypass in 2009. Prior to that she had a sleeve gastrectomy with complications. Since then she has not had any complications from her Cheri-en-Y. No previous ulcers or vomiting problems. She reports she has otherwise been well. No respiratory illness, fever, shortness of breath, chest pain. No urinary problems. She has had very little to eat or drink today. She reports that 2 weeks ago her family had influenza a. She was very careful and had no symptoms except for mild cold symptoms. She had COVID in July 2023. In the emergency department CT scan showed findings consistent with duodenitis. Repeat CT was done because there was question of whether this was pancreatitis at the head of the pancreas. Her lipase is normal. She does take occasional ibuprofen or naproxen. She has not had any in the last few days but did have some a month or 2 ago for a shoulder that was bothering her. She also had what sounds like a Medrol Dosepak around that time. She rarely drinks alcohol. December 07: Overnight she was treated with PPI and IV fluids. She reports feeling quite a bit better this morning. She would like to drink more liquids today. Her diarrhea has resolved. She has not had any vomiting overnight. Her abdominal pain is better. During the day she took in some clear liquids and became quite nauseated. She reports an urge to vomit but can not because of her gastric bypass surgery. December 08. Has some nausea but overall her pain is better. She is quite apprehensive about swallowing any food or fluid. She has taken about 8 oz of ice chips overnight and tolerated that okay. She is passing gas. No diarrhea. She felt some abdominal bloating and so the IV rate was decreased. She did not have any extremity edema. December 09. If she has advanced to a regular diet. Tolerating this very well. No nausea. Abdominal pain is resolved. Status at Discharge Functional status at discharge: independent ambulation Overall status at discharge: patient is progressing back to baseline Time Spent with Patient Time attestation: Total time spent providing and/or coordinating discharge services: 35 min Time spent: Greater than 30 minutes Exam Narrative: Exam Narrative: She is alert and in no distress. Abdomen is soft without tenderness or mass. Const: Vital Signs, click to edit/add: Vital Signs - 24 hr 12/09/23 15:30 12/09/23 20:57 12/09/23 23:50 Temperature 98.3 F 98.3 F 97.8 F Pulse Rate [Left P ulse Oximeter] 71 84 82 Respiratory Rate 18 16 16 Blood Pressure [Le ft Arm] 156/85 H Blood Pressure [Ri ght Arm] 142/87 H 138/80 Pulse Oximetry 95 94 94 Oxygen Delivery Me thod Room Air Room Air Room Air 12/10/23 05:31 12/10/23 08:05 12/10/23 11:06 Temperature 97.8 F 98.3 F Pulse Rate [Left P ulse Oximeter] 72 71 Respiratory Rate 14 16 14 Blood Pressure [Le ft Arm] 123/70 133/77 Blood Pressure [Ri ght Arm] Pulse Oximetry 90 97 Oxygen Delivery Me thod Room Air Room Air DS: Data Data Completed and Pending Labs on day of discharge: Labs from last 24 hours 12/10/23 12/08/23 05:18 20:30 WBC 6.72 RBC 2.78 L Hgb 8.8 L Hct 26.9 L MCV 97 MCH 32 MCHC 33 RDW Coeff of Demetri 12.8 Plt Count 241 Neut % (Auto) 50.5 Lymph % (Auto) 36.0 [place] % (Auto) 10.7 Eos % (Auto) 1.5 Baso % (Auto) 1.0 Neut # (Auto) 3.39 Lymph # (Auto) 2.42 [place] # (Auto) 0.70 Eos # (Auto) 0.10 Baso # (Auto) 0.07 Abs Immat Gran (auto) 0.02 Imm/Tot Granulo (auto) 0.3 Sodium 139 Potassium 3.3 L Chloride 108 Carbon Dioxide 30 Anion Gap 1 L BUN 5 L Creatinine 0.6 Estimated Creat Clear 98.01 Estimated GFR 105 Glucose 92 Calcium 8.2 L Stool H. pylori Ag Negative Preliminary micro results at discharge 12/07/23 22:01 Blood Culture - Preliminary Blood NO GROWTH AFTER 48 HOURS 12/07/23 22:40 Blood Culture - Preliminary Blood NO GROWTH AFTER [address] scan - abdomen: Radiologist's impression: Patient: CYNTHIA DONNELLY Facility:?[facility] Patient ID:?[id number] Site Patient ID:?[id number]. Site :?[id number] Study:?CT-Abdomen/Pelvis W/ISOVUE 370 95CC-12/07/2023 9:11:53 PM Ordering Physician:BASILIO Final Report: INDICATION: Abdominal pain TECHNIQUE: CT Abdomen and pelvis with i.v. contrast. Coronal and sagittal reformats were obtained. CONTRAST: 95 mL Isovue 370 COMPARISON: 12/07/2023, 01/29/2023 FINDINGS: Lower chest: Unremarkable. Liver: Unremarkable. Spleen: Unremarkable. Pancreas: Infiltration of the fat surrounding the pancreatic head and 3rd portion of the duodenal present with an ill-defined fluid collection in the left retroperitoneum measuring approximately 40 HU in density. Gallbladder: Unremarkable. Kidney: Unremarkable. No kidney or ureteral stones or obstruction seen. Adrenal: Unremarkable. Bowel: Previous antegastric-antecolic gastric bypass noted with no definite obstruction of the biliopancreatic limb or Cheri-en-Y loop seen. The appendix is not identified. 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 Lymph: Unremarkable. Peritoneum: Unremarkable. No pneumoperitoneum is seen. No significant ascites is noted. Pelvis: A cyst or follicle is present within the right ovary measuring 2 cm. Soft tissue: Unremarkable. Bone: Unremarkable for age. IMPRESSION: 1. Infiltration of the fat surrounding the pancreatic head and 3rd portion of the duodenal present with an ill-defined fluid collection in the left retroperitoneum measuring approximately 40 HU in density. This may be due to retroperitoneal hematoma associated with duodenitis or pancreatitis involving the pancreatic head. Correlation with amylase and lipase levels are recommended and previous recommendation for endoscopy is reiterated. Dictated by Daryl Romero MD @ 12/07/2023 10:13:01 PM Discharge Plan Discharge Disposition: Home, Self-Care Date of Admission: 12/07/23 23:52 Attending Provider on Discharge: Valentino Ojeda Consulting Providers: Pam La Primary Care Provider: Anais Ortega Condition: Stable Anticipated Discharge Date/Time: 12/10/23 10:00 Discharge Medications: New clarithromycin 500 mg Tablet 500 mg PO BID Qty: 28 0RF omeprazole 20 mg capsule,delayed release(DR/EC) 20 mg PO BID Qty: 60 2RF amoxicillin 500 mg tablet 1,000 mg PO BID Qty: 56 0RF Continued epinephrine 0.3 mg/0.3 mL auto-injector 0.3 ml IM PRN PRN (Reason: bronchodilation) Qty: 2 0RF cyclobenzaprine 10 mg tablet 5 - 10 mg PO HS PRN (Reason: muscle spasm) Qty: 90 1RF cholecalciferol (vitamin D3) [VitaJoy Daily D] 25 mcg (1,000 unit) tablet,chewable 25 mcg PO DAILY Slow Fe 137 mg (45 mg iron) tablet extended release 45 mg PO DAILY multivit with min-folic acid [Adult One Daily Gummies] 200 mcg tablet,chewable 1 tab PO DAILY trazodone 50 mg tablet 50 mg PO HS triamcinolone acetonide 0.1 % cream 1 applic topical BID PRN dextroamphetamine-amphetamine [Adderall XR] 20 mg capsule,extended release 24hr 20 mg PO QAM PRN cetirizine 10 mg tablet 10 mg PO DAILY Discharge Orders: Discharge Order (Routine); Ordered 12/10/23 Ordered By: Valentino Ojeda Patient Education: Omeprazole (By mouth), Amoxicillin (By mouth), Clarithromycin (By mouth) Activity Level: No Restrictions and Other Discharge Diet: Regular and Other Follow Up Appointments: Anais Ortega MD [Primary Care Provider] - 12/18/23 9:45 am ([facility] for follow up, and to have her CBC and potassium check.) Forms: [employer] Info Instructions
== END 2023-12-10 11:58 | disposition home or self-care (01) | DRG 241 ==
LOC: ED 22:31 → MEDSURG 23:17
PROVIDERS: Internal Medicine; Admitting Provider Family Medicine; Emergency Provider Family Medicine; PCP Emergency Medicine; Visit Provider Family Medicine
DX: K29.80 Duodenitis without bleeding (principal); Z98.84 Bariatric surgery status; Z79.899 Other long term (current) drug therapy; D50.8 Other iron deficiency anemias; L40.9 Psoriasis, unspecified; G47.00 Insomnia, unspecified; F90.9 Attention-deficit hyperactivity disorder, unspecified type
CPT/HCPCS: 36415; 71045; 74176; 74177; 80048; 80076; 81001; 83605; 83690; 85025; 86140; 87040; 87086; 87186; 87338; 94761; 99283; 99285; A9153; A9270; C9113; J1170; J1642; J2270; J2405; J2543; J7030; J7050; J7120; Q9967

== ENCOUNTER 2023-12-18 10:24 | Outpatient (CLI) | payer BC, SELFPAY | END 2023-12-18 10:25 | disposition home or self-care (01) | PROVIDERS: PCP Emergency Medicine; Visit Provider Emergency Medicine | DX: D64.9 Anemia, unspecified (principal); E87.6 Hypokalemia | CPT/HCPCS: 80048; 82728; 83540; 83550 ==

== ENCOUNTER 2024-04-22 13:57 | Outpatient (CLI) | payer BC, SELFPAY | END 2024-04-22 13:58 | disposition home or self-care (01) | LOC: LKVREF 13:58 | PROVIDERS: PCP Emergency Medicine; Visit Provider Emergency Medicine | DX: R79.89 Other specified abnormal findings of blood chemistry (principal); R79.0 Abnormal level of blood mineral | CPT/HCPCS: 80048; 82728 ==

== ENCOUNTER 2024-05-05 11:15 | Outpatient (CLI) | payer BC, SELFPAY ==
--- NOTE | 2024-05-05 11:15 | CRLHL7_ITS ---
For Patients: As a result of the Century Cures Act, medical imaging exams and procedure reports are released immediately into your electronic medical record. You may view this report before your referring provider. If you have questions, please contact your health care provider. INDICATION: Ovarian cyst COMPARISON: CT 12/07/2023 TECHNIQUE: 2D perez scale and color Doppler images were acquired of the pelvis using a transabdominal and transvaginal approach. FINDINGS: Uterus measures 6.6 cm in length by 2.9 cm in AP diameter by 3.7 cm in transverse dimension. No uterine fibroid is present. Hyperechoic focus within the mid uterus may represent air as no calcifications were present on the prior CT. No discernible uterine fibroid although the echotexture is heterogeneous. The endometrial lining appears normal and measures 3.3 mm in composite thickness. The right ovary measures 3.3 x 1.6 x 2.5 cm in size and the left ovary is not visualized. The right ovary demonstrates normal arterial and venous blood flow on color Doppler analysis. Right ovarian cyst is present containing a thin internal septation. Cyst measures 2.2 x 1.0 x 1.6 cm. IMPRESSION: Right ovarian cyst measuring 2.2 x 1.0 x 1.6 cm with a thin internal septation. No internal vascularity. No solid nodular component. Dictated by Mulugeta Castro MD @ 05/05/2024 2:47:48 PM (Electronically Signed)
== END 2024-05-05 11:16 | disposition home or self-care (01) ==
PROVIDERS: PCP Emergency Medicine; Visit Provider Physician Assistant
DX: N83.209 Unspecified ovarian cyst, unspecified side (principal); N83.201 Unspecified ovarian cyst, right side
CPT/HCPCS: 76830; 76856

== ENCOUNTER 2024-10-20 11:25 | Outpatient (CLI) | payer BC, SELFPAY | END 2024-10-20 11:26 | disposition home or self-care (01) | LOC: MAMMO 11:25 | PROVIDERS: PCP Emergency Medicine; Visit Provider Emergency Medicine | DX: Z12.31 Encounter for screening mammogram for malignant neoplasm of breast (principal) | CPT/HCPCS: 77063; 77067 ==

== ENCOUNTER 2025-02-10 08:21 | Outpatient (CLI) | payer BC, SELFPAY | END 2025-02-10 08:22 | disposition home or self-care (01) | LOC: NFLDREF 02-12 12:47 | PROVIDERS: PCP Emergency Medicine; Referring Provider Emergency Medicine; Visit Provider Emergency Medicine | DX: R79.0 Abnormal level of blood mineral (principal); R79.89 Other specified abnormal findings of blood chemistry; M85.89 Other specified disorders of bone density and structure, multiple sites; R63.5 Abnormal weight gain; N20.0 Calculus of kidney; I10 Essential (primary) hypertension; E78.5 Hyperlipidemia, unspecified; E87.6 Hypokalemia; D64.9 Anemia, unspecified; Z98.84 Bariatric surgery status | CPT/HCPCS: 80048; 80061; 82306; 82607; 82728; 84443 ==

== ENCOUNTER 2025-08-12 14:59 | Outpatient (CLI) | payer BC, SELFPAY | END 2025-08-12 15:00 | disposition home or self-care (01) | PROVIDERS: PCP Physician Assistant Medical; Visit Provider Nurse Practitioner Family | DX: R53.83 Other fatigue (principal) | CPT/HCPCS: 82306; 82728 ==